=== PATIENT | male | born 1995 | race Caucasian/White ===

== ENCOUNTER 2016-05-23 17:01 | Emergency (ER) | payer MEDICAID ==
[2016-05-23 17:23] VITALS: BP 117/75
--- NOTE | 2016-05-23 18:14 | UC ---
Throat Pain/Nasal Boris HPI - HPI Summary HPI Summary: was was seen at the end of april and dx with pharyngitis, viral. today the cough and sinus pressure continue. no fever. does have a headache. - History of Current Complaint Chief Complaint: UCGeneralIllness Stated Complaint: RESPIRATORY COMPLAINT Time Seen by Provider: 05/23/16 18:02 Hx Obtained From: Patient Onset/Duration: Sudden Onset, Lasting Weeks Severity: Mild Pain Intensity: 4 Pain Scale Used: 0-10 Numeric Cough: Nonproductive Associated Signs & Symptoms: Positive: Dysphagia, Sinus Discomfort, Nasal Discharge - Epiglottits Risk Factors Epiglottis Risk Factors: Negative - Allergies/Home Medications Allergies/Adverse Reactions: Allergies Allergy/AdvReac Type Severity Reaction Status Date / Time Penicillins Allergy Intermediate Rash Verified 05/23/16 17:23 PMH/Surg Hx/FS Hx/Imm Hx Previously Healthy: Yes Endocrine History Of: Reports: Thyroid Disease - HYPO THYROID Denies: Diabetes Cardiovascular History Of: Denies: Cardiac Disorders, Hypertension Respiratory History Of: Denies: COPD, Asthma GI/ History Of: Denies: Ulcer - Surgical History Surgical History: Yes Surgery Procedure, Year, and Place: Sinus surgery 2013, polyps removed. Septum straightened - Family History Known Family History: Positive: None, Cardiac Disease, Hypertension - mom/dad, Diabetes - dad - Social History Alcohol Use: None Substance Use Type: None Smoking Status (MU): Never Smoked Tobacco - Immunization History Most Recent Influenza Vaccination: fall Most Recent Tetanus Shot: PT DOES NOT KNOW Vaccination Up to Date: Yes Review of Systems Constitutional: Negative Skin: Negative Eyes: Negative ENT: Sore Throat, Nasal Discharge Respiratory: Shortness Of Breath, Cough Cardiovascular: Negative Gastrointestinal: Negative Genitourinary: Negative Motor: Negative Neurovascular: Negative Musculoskeletal: Negative Neurological: Headache Psychological: Negative All Other Systems Reviewed And Are Negative: Yes Physical Exam Triage Information Reviewed: Yes Appearance: Well-Nourished, Ill-Appearing, Pain Distress Vital Signs: Initial Vital Signs Temp 98.0 F 05/23/16 17:18 Pulse 74 05/23/16 17:18 Resp 16 05/23/16 17:18 BP 117/75 05/23/16 17:18 Pulse Ox 100 05/23/16 17:18 Vital Signs Reviewed: Yes Eye Exam: Normal Eyes: Positive: Conjunctiva Inflamed ENT Exam: Normal ENT: Positive: Pharyngeal erythema, Nasal congestion, Nasal drainage, TMs normal Dental Exam: Normal Neck exam: Normal Neck: Positive: Supple, Nontender, No Lymphadenopathy Respiratory Exam: Normal Respiratory: Positive: Chest non-tender, Lungs clear, Normal breath sounds Cardiovascular Exam: Normal Cardiovascular: Positive: RRR, No Murmur, Pulses Normal Abdominal Exam: Normal Abdomen Description: Positive: Nontender, No Organomegaly, Soft Bowel Sounds: Positive: Present Musculoskeletal Exam: Normal Musculoskeletal: Positive: Strength Intact, ROM Intact, No Edema Neurological Exam: Normal Neurological: Positive: Alert, Muscle Tone Normal Psychological Exam: Normal Psychological: Positive: Age Appropriate Behavior Skin Exam: Normal Throat Pain/Nasal Course/Dx - Course Course Of Treatment: history obtained, exam performed, medications reviewed, medications prescribed. educated on symptom treatment OTC - Differential Dx/Diagnosis Differential Diagnosis/HQI/PQRI: Influenza, Laryngitis, Pharyngitis, Sinusitis, Tonsillitis, URI Provider Diagnoses: Sinus congestion. pharyngitis. headache Discharge - Discharge Plan Condition: Stable Disposition: HOME Prescriptions: Benzonatate CAP* [Tessalon CAP*] 100 mg PO TID PRN #30 cap PRN Reason: Cough predniSONE TAB* [Deltasone TAB*] 40 mg PO DAILY #10 tab Patient Education Materials: Pharyngitis (ED) Additional Instructions: Take the medication as prescribed. Increase your fluid intake. Get plenty of rest. Follow up with worsening symptoms.
== END 2016-05-23 18:30 | disposition home or self-care (01) ==
LOC: UCCORT 17:01
DX: R09.81 Nasal congestion (principal); R51 Headache; J02.9 Acute pharyngitis, unspecified; Z88.0 Allergy status to penicillin
CPT/HCPCS: 99212; G0463

== ENCOUNTER 2016-06-06 10:09 | Emergency (ER) | payer MEDICAID ==
[2016-06-06 10:24] VITALS: BP 142/83
--- NOTE | 2016-06-06 10:48 | UC ---
Throat Pain/Nasal Boris HPI - HPI Summary HPI Summary: complaint of congestion and cough that strarted several weeks ago headache and bilateral ear pain cough is sometimes productive pressure in his face and forehead mild sore throat denies fever and chills took some ibuprofen last night with relief. - History of Current Complaint Chief Complaint: UCGeneralIllness Stated Complaint: THROAT PAIN Time Seen by Provider: 06/06/16 10:38 Hx Obtained From: Patient - Allergies/Home Medications Allergies/Adverse Reactions: Allergies Allergy/AdvReac Type Severity Reaction Status Date / Time Penicillins Allergy Intermediate Rash Verified 05/23/16 17:23 PMH/Surg Hx/FS Hx/Imm Hx Previously Healthy: No - URI Endocrine History Of: Reports: Thyroid Disease - HYPO THYROID Denies: Diabetes Cardiovascular History Of: Denies: Cardiac Disorders, Hypertension Respiratory History Of: Denies: COPD, Asthma GI/ History Of: Denies: Ulcer - Surgical History Surgical History: Yes Surgery Procedure, Year, and Place: Sinus surgery 2013, polyps removed. Septum straightened - Family History Known Family History: Positive: None, Cardiac Disease, Hypertension - mom/dad, Diabetes - dad - Social History Occupation: Student Lives: With Family Alcohol Use: None Substance Use Type: None Smoking Status (MU): Never Smoked Tobacco - Immunization History Most Recent Influenza Vaccination: fall Most Recent Tetanus Shot: PT DOES NOT KNOW Vaccination Up to Date: Yes Review of Systems Constitutional: Negative Skin: Negative Eyes: Negative ENT: Nasal Discharge Respiratory: Cough Cardiovascular: Negative Gastrointestinal: Negative Genitourinary: Negative Motor: Negative Neurovascular: Negative Musculoskeletal: Negative Neurological: Negative Psychological: Negative All Other Systems Reviewed And Are Negative: Yes Physical Exam Triage Information Reviewed: Yes Appearance: No Pain Distress, Well-Nourished Vital Signs: Initial Vital Signs Temp 98.1 F 06/06/16 10:19 Pulse 85 06/06/16 10:19 Resp 18 06/06/16 10:19 BP 142/83 06/06/16 10:19 Pulse Ox 98 06/06/16 10:19 Vital Signs Reviewed: Yes Eyes: Positive: Conjunctiva Clear ENT: Positive: Pharyngeal erythema, Nasal congestion, Nasal drainage, Other: - maxillary and frontal sinus tenderness. Negative: Tonsillar swelling, Tonsillar exudate Neck: Positive: No Lymphadenopathy Respiratory: Positive: Chest non-tender, Lungs clear, Normal breath sounds Cardiovascular: Positive: RRR, No Murmur Abdomen Description: Positive: Nontender, Soft Bowel Sounds: Positive: Present Musculoskeletal: Positive: No Edema Neurological: Positive: Alert Psychological Exam: Normal Skin Exam: Normal Throat Pain/Nasal Course/Dx - Differential Dx/Diagnosis Differential Diagnosis/HQI/PQRI: Pharyngitis, Sinusitis, URI Provider Diagnoses: sinusitis Discharge - Discharge Plan Condition: Stable Disposition: HOME Prescriptions: DOXYcycline CAP(*) [DOXYcycline 100MG CAP(*)] 100 mg PO BID #20 cap Patient Education Materials: Sinusitis (ED) Referrals: Lalit Mattson MD [Primary Care Provider] - Additional Instructions: SINUSITIS What is Sinusitis? Sinusitis is inflammation or infection of the lining of the sinuses behind the bones in your cheeks or forehead. Sinusitis may occur following a common cold, flu, or other infection; allergies; a tooth infection that spreads to the sinuses; swimming in contaminated water; pressure changes in airplanes at high altitudes; violent sneezing or nose blowing or smoking or breathing other peoples smoke. Symptoms Might Include: Nasal Congestion Sneezing Watery eyes, eye irritation, or eye itching Headaches Pressure in the cheeks Wheezing Trouble smelling Sore throat and coughing may occur Treatment Recommendations: Take medicines as prescribed until completely gone. Drink plenty of fluids. Use saline nose spray to thin the mucous and help the sinuses drain. Use a vaporizer or humidifier. Apply warm compresses to the face or forehead several times a day for 10 to 20 minutes. Call Your Doctor or Return Here IF: Your pain increases during treatment. You develop a high temperature. You develop unusual swelling around the eyes. You have difficulty with your vision. You develop a severe headache, earache, or toothache. You develop increased fever or fever that does not respond to medication such as Tylenol?. You have difficulty breathing or catching your breath. You begin to have any other new symptoms that worry you.
== END 2016-06-06 11:00 | disposition home or self-care (01) ==
LOC: UCEAST 10:09
DX: J32.9 Chronic sinusitis, unspecified (principal); Z88.0 Allergy status to penicillin
CPT/HCPCS: 99212; G0463

== ENCOUNTER 2016-06-27 12:15 | Emergency (ER) | payer MEDICAID ==
--- NOTE | 2016-06-27 14:40 | UC ---
Abdominal Pain Male HPI - HPI Summary HPI Summary: Patient arrives to with CC of BRBPR and lower abdominal cramping since 330am. Denies eating anything abnormal or travel history. Denies known fever, vomiting or nausea. States at 330 this morning had 2-3 bouts of green diarrhea. An hour later the diarrhea had scant amounts of BRB. Now, patient notes to only blood. Denies pain in rectum or anus. Denies history of hemorrhoids. Patients PMHx includes OCD, ADD, and depression to which he takes Risperdol and Zoloft. Otherwise healthy. Today BP is elevated at 155/93. Last PCP visit was 1 month ago for medication refill. Denies drugs, smoking or alcohol usage. - History of Current Complaint Chief Complaint: UCAbdominalPain Stated Complaint: BLOOD IN STOOL,CRAMPS Hx Obtained From: Patient Onset/Duration: Sudden Onset Timing: Intermittent Episodes Lasting: - intermittent cramping which is worse during BM and improves after BM Severity Currently: Moderate Pain Intensity: 4 Pain Scale Used: 0-10 Numeric Location: Discrete At: RLQ, Discrete At: LLQ Radiates: No Character: Aching, Cramping Alleviating Factor(s): Nothing Associated Signs And Symptoms: Positive: Diarrhea, Other - hematochezia - Risk Factors Testicular Torsion: Negative Cardiac Risk Factors: Negative - Allergies/Home Medications Allergies/Adverse Reactions: Allergies Allergy/AdvReac Type Severity Reaction Status Date / Time Penicillins Allergy Intermediate Rash Verified 05/23/16 17:23 cats, dogs, horse, hayfever Allergy Unknown Uncoded 06/27/16 13:54 Reaction Details PMH/Surg Hx/FS Hx/Imm Hx Previously Healthy: Yes Endocrine History Of: Reports: Thyroid Disease - HYPO THYROID Denies: Diabetes Cardiovascular History Of: Denies: Cardiac Disorders, Hypertension Respiratory History Of: Denies: COPD, Asthma GI/ History Of: Denies: Ulcer - Surgical History Surgical History: Yes Surgery Procedure, Year, and Place: Sinus surgery 2013, polyps removed. Septum straightened - Family History Known Family History: Positive: None, Cardiac Disease, Hypertension - mom/dad, Diabetes - dad - Social History Occupation: Student Lives: With Family Alcohol Use: None Substance Use Type: None Smoking Status (MU): Never Smoked Tobacco Have You Smoked in the Last Year: No - Immunization History Most Recent Influenza Vaccination: 2014 fall Most Recent Tetanus Shot: PT DOES NOT KNOW Vaccination Up to Date: Yes Review of Systems Constitutional: Negative ENT: Negative Respiratory: Negative Cardiovascular: Negative Gastrointestinal: Abdominal Pain, Diarrhea, Other - hematochezia Genitourinary: Negative Motor: Negative Neurovascular: Negative Musculoskeletal: Negative Neurological: Negative All Other Systems Reviewed And Are Negative: Yes Physical Exam Triage Information Reviewed: Yes Appearance: Well-Appearing, No Pain Distress, Well-Nourished Vital Signs: Initial Vital Signs Temp 98.6 F 06/27/16 13:44 Pulse 75 06/27/16 13:44 Resp 18 06/27/16 13:44 BP 155/93 06/27/16 13:44 Pulse Ox 100 06/27/16 13:44 Vital Signs Reviewed: Yes Eye Exam: Normal Eyes: Positive: Conjunctiva Clear ENT Exam: Normal ENT: Positive: Hearing grossly normal Neck exam: Normal Neck: Positive: Supple, Nontender, No Lymphadenopathy Respiratory Exam: Normal Respiratory: Positive: Chest non-tender, Lungs clear Cardiovascular Exam: Normal Abdomen Description: Positive: Soft, Other: - tender in RLQ and LLQ Bowel Sounds: Positive: Hyperactive Musculoskeletal Exam: Normal Neurological Exam: Normal Neurological: Positive: Alert, Muscle Tone Normal Psychological Exam: Normal Psychological: Positive: Normal Response To Family, Age Appropriate Behavior Skin Exam: Normal Abd Pain Male Course/Dx - Course Course Of Treatment: Patient with BRBPR with no known internal or external hemmorhoids. Denies fever, nausea, vomiting, travel, sick contacts or abnormal food intake. Patient sent to [place] [facility] for further evaluation. Spoke with provider ARSH Casey for transfer. Patient traveling by private car. BP elevated today at 155/93. Patient obese. Otherwise healthy. - Differential Dx/Clinical Impression Differential Diagnosis/HQI/PQRI: Diverticulitis, Other - hemorroids, inflammatory bowel, infectious diarrhea Provider Diagnoses: BRBPR - Physician Notification/Consults Instructed by Provider To: Transfer - Spoke with ARSH Casey at [place] [facility] Discharge - Discharge Plan Condition: Stable Disposition: [facility]ARE [facility]AC Referrals: Twila RICHARDS,Lalit [Primary Care Provider] -
[2016-06-27 14:44] VITALS: BP 154/103
== END 2016-06-27 14:44 | disposition left against medical advice (07) ==
LOC: UCCORT 12:15
DX: K62.5 Hemorrhage of anus and rectum (principal); R10.31 Right lower quadrant pain; R10.32 Left lower quadrant pain; Z88.0 Allergy status to penicillin
CPT/HCPCS: 99213; G0463

== ENCOUNTER 2016-08-30 16:01 | Emergency (ER) | payer MEDICAID ==
[2016-08-30 16:59] VITALS: BP 135/83
--- NOTE | 2016-08-30 17:53 | UC ---
Skin Complaint HPI - HPI Summary HPI Summary: The patient comes in today for: 1. Tick bite: Onset: Tick found today, and was about 5-10 mm in size. The patient did not bring the tick in for inspection. Palliative/provocative: Soreness with touch. Quality: Sore Region: Posterior right shoulder. Severity: 0.5/10 Time: Constant. Associated symptoms: No fever, or rash. But he states that he has a headache over the last few days. * - History of Current Complaint Chief Complaint: UCSkin Time Seen by Provider: 08/30/16 17:48 Stated Complaint: TICK Hx Obtained From: Patient - Allergy/Home Medications Allergies/Adverse Reactions: Allergies Allergy/AdvReac Type Severity Reaction Status Date / Time Penicillins Allergy Intermediate Rash Verified 08/30/16 16:59 cats, dogs, horse, hayfever Allergy Unknown Uncoded 08/30/16 16:59 Reaction Details Review of Systems Constitutional: Negative Skin: Negative Eyes: Negative ENT: Negative Respiratory: Negative Cardiovascular: Negative All Other Systems Reviewed And Are Negative: Yes PMH/Surg Hx/FS Hx/Imm Hx Previously Healthy: No - ADHD, unknown mental health disorder. Endocrine History Of: Reports: Thyroid Disease - HYPO THYROID Denies: Diabetes, Hyperthyroidism, Hypothyroidism, Dyslipidemia Cardiovascular History Of: Denies: Cardiac Disorders, Hypertension, Pacemaker/ICD, Myocardial Infarction , Congestive Heart Failure, Atrial Fibrillation, Deep Vein Thrombosis, Bleeding Disorders Respiratory History Of: Denies: COPD, Asthma, Bronchitis, Pneumonia, Pulmonary Embolism GI/ History Of: Denies: Gastroesophageal Reflux, Ulcer, Gastrointestinal Bleed, Gall Bladder Disease, Kidney Stones, Diverticulitis, Renal Disease, Urosepsis Neurological History Of: Denies: TIA, CVA, Dementia, Seizures, Migraine Psychological History Of: Reports: Anxiety, Depression Denies: Bipolar Disorder, Schizophrenia, Post Traumatic Stress Disorder Cancer History Of: Denies: Lung Cancer, Colorectal Cancer, Breast Cancer, Prostate Cancer, Cervical Cancer Other History Of: Negative For: HIV, Hepatitis B, Hepatitis C, Anticoagulant Therapy - Surgical History Surgical History: Yes Surgery Procedure, Year, and Place: Sinus surgery 2013, polyps removed. Septum straightened - Family History Known Family History: Positive: Cardiac Disease, Hypertension - mom/dad, Diabetes - dad - Social History Occupation: Unemployed Alcohol Use: None Substance Use Type: None Smoking Status (MU): Never Smoked Tobacco Have You Smoked in the Last Year: No - Immunization History Most Recent Influenza Vaccination: fall Most Recent Tetanus Shot: PT DOES NOT KNOW Vaccination Up to Date: Yes Physical Exam Triage Information Reviewed: Yes Appearance: Well-Appearing, No Pain Distress, Well-Nourished Vital Signs: Initial Vital Signs Temp 97 F 08/30/16 16:56 Pulse 72 08/30/16 16:56 Resp 18 08/30/16 16:56 BP 135/83 08/30/16 16:56 Pulse Ox 100 08/30/16 16:56 Vital Signs Reviewed: Yes Eyes: Positive: Conjunctiva Clear. Negative: Discharge ENT: Positive: Hearing grossly normal. Negative: Pharyngeal erythema, Nasal congestion, Nasal drainage, TM bulging, TM dull, TM red, Tonsillar swelling, Tonsillar exudate Dental: Negative: Gross Decay/Caries @, Dental Fracture @ Neck: Positive: Supple, Nontender, No Lymphadenopathy. Negative: Nuchal Rigidity Respiratory: Positive: Lungs clear, No respiratory distress, No accessory muscle use. Negative: Crackles, Wheezing Cardiovascular: Positive: RRR, No Murmur Abdomen Description: Positive: Nontender, No Organomegaly, Soft. Negative: Distended, Guarding Musculoskeletal: Positive: Strength Intact, ROM Intact, No Edema Neurological: Positive: Alert, Muscle Tone Normal Psychological: Positive: Age Appropriate Behavior, Consolable Skin: Positive: rashes - He had 2-3 mm erythema and dark scab on the posterior right shoulder. Minimal tenderness. No discharge. Course/Dx - Course Course Of Treatment: Patient given 200 mg doxycycline. - Differential Diagnoses - Skin Complaint Differential Diagnoses: Cellulitis, Impetigo - Diagnoses Provider Diagnoses: Tick bite, right posterior shoulder. Discharge - Discharge Plan Condition: Stable Disposition: HOME Patient Education Materials: Tick Bite (ED) Referrals: Tavon Rendon MD [Primary Care Provider] - If Needed (Please watch the area daily for increasing redness, tenderness, discharge or swelling. If you dont' continue to see healing, please be seen again.)
[2016-08-30] MEDS ORDERED: DOXYcycline CAP(*) 100 MG PO ONE (17:57)
== END 2016-08-30 18:07 | disposition home or self-care (01) ==
LOC: UCCORT 16:01
DX: S40.261A Insect bite (nonvenomous) of right shoulder, initial encounter (principal); W57.XXXA Bitten or stung by nonvenomous insect and other nonvenomous arthropods, initial encounter; Y93.9 Activity, unspecified; Y92.9 Unspecified place or not applicable; R51 Headache; Z88.0 Allergy status to penicillin; E03.9 Hypothyroidism, unspecified; F90.9 Attention-deficit hyperactivity disorder, unspecified type; F41.8 Other specified anxiety disorders
CPT/HCPCS: 99212; A9270-GY; G0463

== ENCOUNTER 2016-09-07 16:36 | Emergency (ER) | payer SELFPAY ==
[2016-09-07 17:09] VITALS: BP 135/82
--- NOTE | 2016-09-07 17:22 | RAD ---
HISTORY: Trauma, lightheadedness COMPARISONS: None TECHNIQUE: Multiple contiguous axial CT scans were obtained of the head without intravenous contrast. FINDINGS: HEMORRHAGE/INFARCT: There is no hemorrhage or acute infarct. MASSES/SHIFT: There is no mass or shift. EXTRA-AXIAL SPACES: There are no extra-axial fluid collections. SULCI AND VENTRICLES: The sulci and ventricles are normal in size and position for the patient's stated age. CEREBRUM: There are no focal parenchymal abnormalities. BRAINSTEM: There are no focal parenchymal abnormalities. CEREBELLUM: There are no focal parenchymal abnormalities. VESSELS: The vessels are grossly normal. PARANASAL SINUSES: The paranasal sinuses are clear. ORBITS: The orbits are unremarkable. BONES AND SOFT TISSUE: No bone or soft tissue abnormalities are noted. OTHER: None IMPRESSION: NO ACUTE INTRACRANIAL PATHOLOGY.
--- NOTE | 2016-09-07 17:23 | RAD ---
HISTORY: Trauma, lightheadedness COMPARISONS: None TECHNIQUE: Multiple contiguous axial CT scans were obtained of the cervical spine without intravenous contrast, with coronal and sagittal multiplanar reformations. FINDINGS: BRAIN: The visualized brain is unremarkable CENTRAL CANAL: Evaluation of the central canal is limited on CT technique, however there is no obvious canalicular mass or epidural hemorrhage. ALIGNMENT: There is straightening of the normal cervical lordosis. VERTEBRAL BODIES: The odontoid process is intact. The atlantoaxial intervals are symmetric. The vertebral bodies are normal in attenuation, without fracture. JOINTS: There is no subluxation or dislocation MUSCULATURE: Normal INTERVERTEBRAL DISCS: The intervertebral disc spaces are relatively preserved in height. AXIAL IMAGES: On axial images, there is no osseous neural foraminal narrowing or central canal stenosis. SOFT TISSUES: The visualized soft tissues of the neck are unremarkable. The prevertebral fat stripe is preserved. OTHER: None. IMPRESSION: NO ACUTE OSSEOUS INJURY TO THE CERVICAL SPINE
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
== END 2016-09-07 18:18 | disposition home or self-care (01) ==
LOC: ED 16:36
DX: S09.90XA Unspecified injury of head, initial encounter (principal); S13.4XXA Sprain of ligaments of cervical spine, initial encounter; Y92.9 Unspecified place or not applicable; V79.9XXA Bus occupant (driver) (passenger) injured in unspecified traffic accident, initial encounter
CPT/HCPCS: 70450; 72125; 99282

== ENCOUNTER 2016-09-16 08:36 | Emergency (ER) | payer MEDICAID ==
[2016-09-16 08:45] VITALS: BP 140/84
--- NOTE | 2016-09-16 08:57 | UC ---
Throat Pain/Nasal Boris HPI - HPI Summary HPI Summary: complaint of nasal congestion and cough productive cough for the last week pressure in his face frequent headaches sore throat from coughing denies fever and chills not taking any medications for symptoms - History of Current Complaint Chief Complaint: UCRespiratory Stated Complaint: UPPER RESPIRATORY Time Seen by Provider: 09/16/16 08:48 Hx Obtained From: Patient - Allergies/Home Medications Allergies/Adverse Reactions: Allergies Allergy/AdvReac Type Severity Reaction Status Date / Time Penicillins Allergy Intermediate Rash Verified 09/16/16 08:45 cats, dogs, horse, hayfever Allergy Unknown Uncoded 09/16/16 08:45 Reaction Details PMH/Surg Hx/FS Hx/Imm Hx Previously Healthy: Yes Endocrine History Of: Reports: Thyroid Disease - HYPO THYROID Denies: Diabetes, Hyperthyroidism, Hypothyroidism, Dyslipidemia Cardiovascular History Of: Denies: Cardiac Disorders, Hypertension, Pacemaker/ICD, Myocardial Infarction , Congestive Heart Failure, Atrial Fibrillation, Deep Vein Thrombosis, Bleeding Disorders Respiratory History Of: Denies: COPD, Asthma, Bronchitis, Pneumonia, Pulmonary Embolism GI/ History Of: Denies: Gastroesophageal Reflux, Ulcer, Gastrointestinal Bleed, Gall Bladder Disease, Kidney Stones, Diverticulitis, Renal Disease, Urosepsis Neurological History Of: Denies: TIA, CVA, Dementia, Seizures, Migraine Psychological History Of: Reports: Anxiety, Depression Denies: Bipolar Disorder, Schizophrenia, Post Traumatic Stress Disorder Cancer History Of: Denies: Lung Cancer, Colorectal Cancer, Breast Cancer, Prostate Cancer, Cervical Cancer Other History Of: Negative For: HIV, Hepatitis B, Hepatitis C, Anticoagulant Therapy - Surgical History Surgical History: Yes Surgery Procedure, Year, and Place: Sinus surgery 2013, polyps removed. Septum straightened - Family History Known Family History: Positive: Cardiac Disease, Hypertension - mom/dad, Diabetes - dad - Social History Occupation: Employed Part-time Lives: With Family Alcohol Use: None Substance Use Type: None Smoking Status (MU): Never Smoked Tobacco Have You Smoked in the Last Year: No - Immunization History Most Recent Influenza Vaccination: fall Most Recent Tetanus Shot: PT DOES NOT KNOW Vaccination Up to Date: Yes Review of Systems Constitutional: Negative Skin: Negative Eyes: Negative ENT: Sore Throat, Ear Ache, Nasal Discharge Respiratory: Cough Cardiovascular: Negative Gastrointestinal: Negative Genitourinary: Negative Motor: Negative Neurovascular: Negative Musculoskeletal: Negative Neurological: Headache Psychological: Negative All Other Systems Reviewed And Are Negative: Yes Physical Exam Triage Information Reviewed: Yes Appearance: No Pain Distress, Well-Nourished Vital Signs: Initial Vital Signs Temp 98 F 09/16/16 08:41 Pulse 60 09/16/16 08:41 Resp 14 09/16/16 08:41 BP 140/84 09/16/16 08:41 Pulse Ox 99 09/16/16 08:41 Vital Signs Reviewed: Yes Eyes: Positive: Conjunctiva Clear ENT: Positive: Pharyngeal erythema, Nasal congestion, Nasal drainage, TM bulging , Other: - frontal and maxillary sinus tenderness. Negative: TM red Neck: Positive: No Lymphadenopathy Respiratory: Positive: Lungs clear, Normal breath sounds, No respiratory distress, No accessory muscle use Cardiovascular: Positive: RRR, No Murmur, Pulses Normal Abdomen Description: Positive: Nontender, Soft Bowel Sounds: Positive: Present Musculoskeletal: Positive: No Edema Neurological Exam: Normal Psychological Exam: Normal Skin Exam: Normal Throat Pain/Nasal Course/Dx - Differential Dx/Diagnosis Differential Diagnosis/HQI/PQRI: Sinusitis, URI Provider Diagnoses: sinusitis. elevated blood pressure Discharge - Discharge Plan Condition: Stable Disposition: HOME Prescriptions: Sulfamethox/Trimethoprim DS* [Bactrim DS 800/160 TAB*] 1 tab PO BID #20 tab Patient Education Materials: Sinusitis (ED) Referrals: Tavon Rendon MD [Primary Care Provider] - Additional Instructions: SINUSITIS What is Sinusitis? Sinusitis is inflammation or infection of the lining of the sinuses behind the bones in your cheeks or forehead. Sinusitis may occur following a common cold, flu, or other infection; allergies; a tooth infection that spreads to the sinuses; swimming in contaminated water; pressure changes in airplanes at high altitudes; violent sneezing or nose blowing or smoking or breathing other peoples smoke. Symptoms Might Include: Nasal Congestion Sneezing Watery eyes, eye irritation, or eye itching Headaches Pressure in the cheeks Wheezing Trouble smelling Sore throat and coughing may occur Treatment Recommendations: Take medicines as prescribed until completely gone. Drink plenty of fluids. Use saline nose spray to thin the mucous and help the sinuses drain. Use a vaporizer or humidifier. Apply warm compresses to the face or forehead several times a day for 10 to 20 minutes. Call Your Doctor or Return Here IF: Your pain increases during treatment. You develop a high temperature. You develop unusual swelling around the eyes. You have difficulty with your vision. You develop a severe headache, earache, or toothache. You develop increased fever or fever that does not respond to medication such as Tylenol?. You have difficulty breathing or catching your breath. You begin to have any other new symptoms that worry you. Your blood pressure is elevated. Please contact your primary care provider within 1 day -4 weeks for further evaluation.
== END 2016-09-16 09:04 | disposition home or self-care (01) ==
LOC: UCCORT 08:36
DX: J32.9 Chronic sinusitis, unspecified (principal); R03.0 Elevated blood-pressure reading, without diagnosis of hypertension; E03.9 Hypothyroidism, unspecified; F41.8 Other specified anxiety disorders; Z88.0 Allergy status to penicillin
CPT/HCPCS: 99212; G0463

== ENCOUNTER 2016-11-28 15:09 | Emergency (ER) | payer MEDICAID ==
--- NOTE | 2016-11-28 16:13 | UC ---
Shoulder Pain HPI - HPI Summary HPI Summary: 21 YEAR OLD MALE PRESENTS WITH COMPLAINS OF LEFT UPPER BACK PAIN. - History of Current Complaint Stated Complaint: SHOULDER BLADE PAIN Time Seen by Provider: 11/28/16 16:12 - Allergies/Home Medications Allergies/Adverse Reactions: Allergies Allergy/AdvReac Type Severity Reaction Status Date / Time Penicillins Allergy Intermediate Rash Verified 11/28/16 16:36 cats, dogs, horse, hayfever Allergy Unknown Uncoded 11/28/16 16:36 Reaction Details Home Medications: Home Medications Cetirizine* [ZyrTEC 10 MG TAB*] 10 mg PO DAILY 11/28/16 [History Confirmed 11/28] PMH/Surg Hx/FS Hx/Imm Hx Other History Of: Negative For: HIV, Hepatitis B, Hepatitis C, Anticoagulant Therapy - Surgical History Surgical History: Yes Surgery Procedure, Year, and Place: Sinus surgery 2013, polyps removed. Septum straightened - Family History Known Family History: Positive: Cardiac Disease, Hypertension - mom/dad, Diabetes - dad - Social History Alcohol Use: None Substance Use Type: None Smoking Status (MU): Never Smoked Tobacco Have You Smoked in the Last Year: No - Immunization History Most Recent Influenza Vaccination: fall Most Recent Tetanus Shot: PT DOES NOT KNOW Vaccination Up to Date: Yes Review of Systems Constitutional: Negative Skin: Negative Eyes: Negative ENT: Negative Respiratory: Negative Cardiovascular: Negative Gastrointestinal: Negative Genitourinary: Negative Motor: Negative Neurovascular: Negative Musculoskeletal: Myalgia, Other: - LEFT UPPER BACK PAIN Neurological: Negative Psychological: Negative All Other Systems Reviewed And Are Negative: Yes Physical Exam Triage Information Reviewed: Yes Eye Exam: Normal ENT Exam: Normal Dental Exam: Normal Neck exam: Normal Neck: Positive: 1 Respiratory Exam: Normal Cardiovascular Exam: Normal Abdominal Exam: Normal Musculoskeletal: Positive: Other: - LEFT UPPER BACK PAIN Neurological Exam: Normal Psychological Exam: Normal Skin Exam: Normal Shoulder Course/Dx - Differential Dx/Diagnosis Provider Diagnoses: LEFT SCAPULA DYSKINESIA Discharge - Discharge Plan Condition: Stable Disposition: HOME Prescriptions: Meloxicam [Mobic] 7.5 mg PO BID #30 tab Methocarbamol TAB* [Robaxin 500 MG TAB*] 500 mg PO TID PRN #30 tab PRN Reason: Spasms - Back Patient Education Materials: Shoulder Sprain (ED), Muscle Spasm (ED) Referrals: No Primary Care Phys,NOPCP [Primary Care Provider] -
[2016-11-28 16:43] VITALS: BP 124/92
== END 2016-11-28 16:43 | disposition home or self-care (01) ==
LOC: UCCORT 15:09
DX: G24.9 Dystonia, unspecified (principal); Z88.0 Allergy status to penicillin
CPT/HCPCS: 99212; G0463

== ENCOUNTER 2016-12-18 15:01 | Emergency (ER) | payer MEDICAID ==
--- NOTE | 2016-12-18 15:37 | UC ---
Lower Extremity/Ankle HPI - HPI Summary HPI Summary: 21 y/o male PMHX ADHD, depression presents to the urgent car c/o left lower leg pain for the past 3 days after playing soft ball. Pt states pain increased last night when he played again. Pain is 8/10 upon walking and 3/10 at rest. Pt has taken Meloxicam PO w/o any relief of symptoms. Pt denies fever, SOB, chest pain , N/V/D, CORTES. - History of Current Complaint Stated Complaint: LEFT LEG INJURY Time Seen by Provider: 12/18/16 15:29 Hx Obtained From: Patient Onset/Duration: Gradual Onset, Lasting Days, Still Present Severity Initially: Mild Severity Currently: Moderate Pain Intensity: 8 Pain Scale Used: 0-10 Numeric Aggravating Factor(s): Ambulation Alleviating Factor(s): Rest Able to Bear Weight: Yes - Risk Factors Gout Risk Factors: Negative DVT Risk Factors: Negative Septic Arthritis Risk Factor: Negative - Allergies/Home Medications Allergies/Adverse Reactions: Allergies Allergy/AdvReac Type Severity Reaction Status Date / Time Penicillins Allergy Intermediate Rash Verified 12/18/16 15:30 cats, dogs, horse, hayfever Allergy Unknown Uncoded 12/18/16 15:30 Reaction Details PMH/Surg Hx/FS Hx/Imm Hx Previously Healthy: Yes Psychological History: Anxiety, Depression Other Psychological History: ADHD Other History Of: Negative For: HIV, Hepatitis B, Hepatitis C, Anticoagulant Therapy - Surgical History Surgical History: Yes Surgery Procedure, Year, and Place: Sinus surgery 2013, polyps removed. Septum straightened - Family History Known Family History: Positive: Cardiac Disease, Hypertension - mom/dad, Diabetes - dad - Social History Occupation: Student Lives: With Family Alcohol Use: None Substance Use Type: None Smoking Status (MU): Never Smoked Tobacco Have You Smoked in the Last Year: No - Immunization History Most Recent Influenza Vaccination: fall Most Recent Tetanus Shot: PT DOES NOT KNOW Vaccination Up to Date: Yes Review of Systems Constitutional: Negative Skin: Negative Eyes: Negative ENT: Negative Respiratory: Negative Cardiovascular: Negative Gastrointestinal: Negative Genitourinary: Negative Motor: Negative Neurovascular: Negative Musculoskeletal: Other: - LF simon pain Neurological: Negative Psychological: Negative All Other Systems Reviewed And Are Negative: Yes Physical Exam Triage Information Reviewed: Yes Appearance: Well-Appearing, No Pain Distress, Well-Nourished, Obese Eye Exam: Normal Eyes: Positive: Conjunctiva Clear ENT Exam: Normal ENT: Positive: Normal ENT inspection, Hearing grossly normal, Pharynx normal Dental Exam: Normal Neck exam: Normal Neck: Positive: Supple, Nontender Respiratory Exam: Normal Respiratory: Positive: Chest non-tender, Lungs clear, Normal breath sounds Cardiovascular Exam: Normal Cardiovascular: Positive: RRR, No Murmur, Pulses Normal Abdominal Exam: Normal Abdomen Description: Positive: Nontender, No Organomegaly, Soft. Negative: CVA Tenderness (R), CVA Tenderness (L) Bowel Sounds: Positive: Present Musculoskeletal: Positive: Other: - 21 y/o male PMHX ADHD, depression presents to the urgent car c/o left lower leg pain for the past 3 days after playing soft ball. Pt states pain increased last night when he played again. Pain is 8/ 10 upon walking and 3/10 at rest. Pt has taken Meloxicam PO w/o any relief of symptoms. Pt denies fever, SOB, chest pain, N/V/D, CORTES. Neurological Exam: Normal Psychological Exam: Normal Skin Exam: Normal Lower Extremity Course/Dx - Course Course Of Treatment: 21 y/o male PMHX ADHD, depression presents to the urgent car c/o left lower leg pain for the past 3 days after playing soft ball. Pt states pain increased last night when he played again. Pain is 8/10 upon walking and 3/10 at rest. Pt has taken Meloxicam PO w/o any relief of symptoms. Pt denies fever, SOB, chest pain, N/V/D, CORTES. HX obtained. 21 y/o male PMHX ADHD, depression presents to the urgent car c/o left lower leg pain for the past 3 days after playing soft ball. Pt states pain increased last night when he played again. Pain is 8/10 upon walking and 3/10 at rest. Pt has taken Meloxicam PO w/o any relief of symptoms. Pt denies fever, SOB, chest pain , N/V/D, CORTES. R/o DVT, tear, grastonemicus sprain or tear? Pt's symptoms discussed with DR Beavers and he suggested Pt should go to the ER to r/o DVT or tear since we don't have ultrasound at this moment. Pt's father explained the risks of a clot or a tear. Father agreed and stated he will take his son to the [place] ER. I spoke to SORTING AND FOLDING SUPERVISOR Carmela Reid at [facility] [place]. She agreed to take Pt. Pt left the clinic ambulating and hemodinamically stable. - Differential Dx/Diagnosis Differential Diagnosis/HQI/PQRI: Compartment Syndrome, Contusion, Fracture ( Closed), Sprain, Strain, Tendonitis, Other - achilles tendon rupture, DVT, grastronemicus tear or strain Provider Diagnoses: 1- Acute Left calf pain - Physician Notifications Discussed Patient Care With: Yury Beavers - Dr Beavers agreed w/ Pt care and disposition Discharge - Discharge Plan Condition: Stable Disposition: TRANS HIGHER LVL OF CARE FAC Patient Education Materials: Deep Venous Thrombosis (ED) Referrals: Uriel SHELTON,Hector Pierce [Primary Care Provider] - Additional Instructions: I highly recommend you to go to the [place] ER . You are presenting with severe calf pain must likely gratronemicus muscle tear, strain, but we need to r /o DVT.
[2016-12-18 15:59] VITALS: BP 128/74
== END 2016-12-18 16:35 | disposition short-term general hospital (02) ==
LOC: UCCORT 15:01
DX: M79.662 Pain in left lower leg (principal); E66.9 Obesity, unspecified; F41.9 Anxiety disorder, unspecified; F32.9 Major depressive disorder, single episode, unspecified; F90.9 Attention-deficit hyperactivity disorder, unspecified type; Z88.0 Allergy status to penicillin
CPT/HCPCS: 99211; G0463

== ENCOUNTER 2017-01-02 16:51 | Emergency (ER) | payer MEDICAID ==
[2017-01-02 17:02] VITALS: BP 128/73
--- NOTE | 2017-01-02 17:28 | UC ---
Eye Complaint HPI - HPI Summary HPI Summary: 21 YO MALE WITH ITCHY RED EYES X 4 DAYS NO URI SYMPTOMS NO PAIN - History of Current Complaint Chief Complaint: UCEye Stated Complaint: ITCHY/BURNING EYES Time Seen by Provider: 01/02/17 17:21 Hx Obtained From: Patient Onset/Duration: Gradual Onset, Lasting Days Timing: Constant Severity Initially: Mild Severity Currently: Mild Pain Intensity: 2 Pain Scale Used: 0-10 Numeric Location of Injury: Conjunctiva Associated Signs And Symptoms: Positive: Drainage (Purulent) - Risk Factors Penetrating Injury Risk Factor: Negative Globe Rupture Risk Factors: Negative Acute Glaucoma Risk Factors: Negative Optic Artery Occlusion Risk Factors: Negative - Allergies/Home Medications Allergies/Adverse Reactions: Allergies Allergy/AdvReac Type Severity Reaction Status Date / Time Penicillins Allergy Intermediate Rash Verified 01/02/17 17:02 cats, dogs, horse, hayfever Allergy Unknown Uncoded 01/02/17 17:02 Reaction Details PMH/Surg Hx/FS Hx/Imm Hx Previously Healthy: Yes Psychological History: Other - UNKNOWN Other Psychological History: UNKNOWN Other History Of: Negative For: HIV, Hepatitis B, Hepatitis C, Anticoagulant Therapy - Surgical History Surgical History: Yes Surgery Procedure, Year, and Place: Sinus surgery 2013, polyps removed. Septum straightened - Family History Known Family History: Positive: Cardiac Disease, Hypertension - mom/dad, Diabetes - dad - Social History Alcohol Use: None Substance Use Type: None Smoking Status (MU): Never Smoked Tobacco Have You Smoked in the Last Year: No - Immunization History Most Recent Influenza Vaccination: fall Most Recent Tetanus Shot: PT DOES NOT KNOW Vaccination Up to Date: Yes Review of Systems Constitutional: Negative Skin: Negative Eyes: Drainage, Eye Redness ENT: Negative Respiratory: Negative Cardiovascular: Negative Gastrointestinal: Negative Genitourinary: Negative Motor: Negative Neurovascular: Negative Musculoskeletal: Negative Neurological: Negative Psychological: Negative All Other Systems Reviewed And Are Negative: Yes Physical Exam Triage Information Reviewed: Yes Appearance: No Pain Distress, Well-Nourished, Ill-Appearing Vital Signs: Initial Vital Signs Temp 97.6 F 01/02/17 16:56 Pulse 65 01/02/17 16:56 Resp 16 01/02/17 16:56 BP 128/73 01/02/17 16:56 Pulse Ox 100 01/02/17 16:56 Eyes: Positive: Conjunctiva Inflamed, Other: - EOMI/PERRL ENT: Positive: Hearing grossly normal, TMs normal. Negative: Pharyngeal erythema, Nasal congestion, Nasal drainage, Trismus, Muffled/hoarse voice Neck: Positive: Supple, Nontender, No Lymphadenopathy Respiratory: Positive: Lungs clear, Normal breath sounds, No respiratory distress, No accessory muscle use Cardiovascular: Positive: RRR, No Murmur Musculoskeletal: Positive: ROM Intact, No Edema Neurological: Positive: Alert Psychological Exam: Normal Skin Exam: Normal Eye Complaint Course/Dx - Differential Dx/Diagnosis Provider Diagnoses: CONJUNCTIVITIS Discharge - Discharge Plan Condition: Stable Disposition: HOME Prescriptions: Polymyx/Trimethoprim OPTH* [Polytrim OPHTH*] 1 - 2 drop BOTH EYES QID #1 btl Patient Education Materials: Conjunctivitis (ED) Referrals: Uriel SHELTON,Hector Pierce [Primary Care Provider] - Additional Instructions: recheck in 4 days if not better I SUGGEST YOUR ALSO USE ZADITOR EYE DROPS (OTC)
== END 2017-01-02 17:35 | disposition home or self-care (01) ==
LOC: UCCORT 16:51
DX: H10.9 Unspecified conjunctivitis (principal)
CPT/HCPCS: 99212; G0463

== ENCOUNTER 2017-01-24 16:29 | Emergency (ER) | payer MEDICAID ==
[2017-01-24 19:02] VITALS: BP 130/79
--- NOTE | 2017-01-24 19:52 | UC ---
Abdominal Pain Male HPI - HPI Summary HPI Summary: 21 y/o male with abdominal pain since Saturday. Patient state pain in increased with urination, cramping pain that occurs with urination and at rest, doubling patient over at times. No prior episodes, no abdominal surgeries. - History of Current Complaint Chief Complaint: UCGU Stated Complaint: URINARY Time Seen by Provider: 01/24/17 19:29 Hx Obtained From: Patient, Family/Separator Tender - father Onset/Duration: Sudden Onset, Lasting Days Severity Initially: Moderate Severity Currently: Moderate Location: Discrete At: RLQ Radiates: No Character: Cramping, Sharp Alleviating Factor(s): Nothing Associated Signs And Symptoms: Positive: Fever - unsure, Urinary Symptoms - pain with urination - Allergies/Home Medications Allergies/Adverse Reactions: Allergies Allergy/AdvReac Type Severity Reaction Status Date / Time Penicillins Allergy Intermediate Rash Verified 01/24/17 18:57 cats, dogs, horse, hayfever Allergy Unknown Uncoded 01/24/17 18:57 Reaction Details PMH/Surg Hx/FS Hx/Imm Hx Previously Healthy: Yes - MR Other History Of: Negative For: HIV, Hepatitis B, Hepatitis C, Anticoagulant Therapy - Surgical History Surgical History: Yes Surgery Procedure, Year, and Place: Sinus surgery 2013, polyps removed. Septum straightened - Family History Known Family History: Positive: Cardiac Disease, Hypertension - mom/dad, Diabetes - dad - Social History Alcohol Use: None Substance Use Type: None Smoking Status (MU): Never Smoked Tobacco Have You Smoked in the Last Year: No - Immunization History Most Recent Influenza Vaccination: fall Most Recent Tetanus Shot: PT DOES NOT KNOW Vaccination Up to Date: Yes Review of Systems Gastrointestinal: Abdominal Pain Genitourinary: Dysuria, Frequency, Urgency Is Patient Immunocompromised?: No All Other Systems Reviewed And Are Negative: Yes Physical Exam Triage Information Reviewed: Yes Appearance: Well-Appearing, No Pain Distress, Well-Nourished Vital Signs: Initial Vital Signs Temp 97.4 F 01/24/17 18:59 Pulse 78 01/24/17 18:59 Resp 16 01/24/17 18:59 BP 130/79 01/24/17 18:59 Pulse Ox 99 01/24/17 18:59 Vital Signs Reviewed: Yes ENT: Positive: Pharynx normal, TM dull Neck: Positive: Supple, Nontender, No Lymphadenopathy Abdomen Description: Positive: No Organomegaly, Other: - + mcburney, + psoas, pain located specifically at RLQ, no CVA tenderness b/l NABS x 4. Musculoskeletal Exam: Normal Neurological Exam: Normal Psychological Exam: Normal Skin Exam: Normal Abd Pain Male Course/Dx - Course Course Of Treatment: possible appendicitis, patients father informed, advised to go to [facility], which [facility] agreed to. [facility] notified, Dr. Reid. - Differential Dx/Clinical Impression Differential Diagnosis/HQI/PQRI: Appendicitis, Bowel Obstruction, Constipation, Diverticulitis Provider Diagnoses: acute abdominal pain Discharge - Discharge Plan Condition: Fair Disposition: OTHER Discharge Disposition Comment: to ER Patient Education Materials: Acute Abdominal Pain (ED) Referrals: Uriel SHELTON,Hector Pierce [Primary Care Provider] - Additional Instructions: - Patient advised to go to ER due to possible appendicitis signs/ symptoms. -
== END 2017-01-24 19:50 ==
LOC: UCCORT 16:29
DX: R10.31 Right lower quadrant pain (principal); J30.81 Allergic rhinitis due to animal (cat) (dog) hair and dander; Z88.0 Allergy status to penicillin
CPT/HCPCS: 81003; 99212; G0463

== ENCOUNTER 2017-02-26 13:28 | Emergency (ER) | payer MEDICAID ==
[2017-02-26 13:35] VITALS: BP 125/76
--- NOTE | 2017-02-26 14:30 | RAD ---
HISTORY: Fall, left shoulder pain COMPARISONS: None VIEWS: 4, Frontal internal rotation, external rotation, outlet, and axillary views of the left shoulder FINDINGS: BONE DENSITY: Normal. BONES: There is no displaced fracture. JOINTS: There is no arthropathy. ALIGNMENT: There is no dislocation. SOFT TISSUES: Unremarkable. OTHER FINDINGS: None. IMPRESSION: NO ACUTE OSSEOUS INJURY. IF SYMPTOMS PERSIST, RECOMMEND REPEAT IMAGING.
--- NOTE | 2017-02-26 14:41 | UC ---
Upper Extremity HPI - HPI Summary HPI Summary: 21 year old male with PMH MR, no medication presents for left shoulder pain after falling onto shoulder while playing football, apin wtih lifting arm to side, pain in shoudler joint. no prior injury/ trauma. no swelling. - History of Current Complaint Chief Complaint: UCUpperExtremity Stated Complaint: SHOULDER INJURY Time Seen by Provider: 02/26/17 13:52 Hx Obtained From: Patient Onset/Duration: Sudden Onset, Lasting Hours Severity Initially: Moderate Severity Currently: Moderate - Allergies/Home Medications Allergies/Adverse Reactions: Allergies Allergy/AdvReac Type Severity Reaction Status Date / Time Penicillins Allergy Intermediate Rash Verified 01/24/17 18:57 cats, dogs, horse, hayfever Allergy Unknown Uncoded 01/24/17 18:57 Reaction Details Home Medications: Home Medications Esomeprazole Magnesium [Nexium] 40 mg PO 02/26/17 [History] PMH/Surg Hx/FS Hx/Imm Hx Previously Healthy: Yes Other History Of: Negative For: HIV, Hepatitis B, Hepatitis C, Anticoagulant Therapy - Surgical History Surgical History: Yes Surgery Procedure, Year, and Place: Sinus surgery 2013, polyps removed. Septum straightened - Family History Known Family History: Positive: Cardiac Disease, Hypertension - mom/dad, Diabetes - dad - Social History Alcohol Use: None Substance Use Type: None Smoking Status (MU): Never Smoked Tobacco Have You Smoked in the Last Year: No - Immunization History Most Recent Influenza Vaccination: fall Most Recent Tetanus Shot: PT DOES NOT KNOW Vaccination Up to Date: Yes Review of Systems Musculoskeletal: Arthralgia, Decreased ROM, Myalgia Is Patient Immunocompromised?: No All Other Systems Reviewed And Are Negative: Yes Physical Exam Triage Information Reviewed: Yes Appearance: Well-Appearing, No Pain Distress, Well-Nourished Vital Signs: Initial Vital Signs Temp 95.5 F 02/26/17 13:32 Pulse 66 02/26/17 13:32 Resp 18 02/26/17 13:32 BP 125/76 02/26/17 13:32 Pulse Ox 99 02/26/17 13:32 Vital Signs Reviewed: Yes Eyes: Positive: Conjunctiva Clear Neck: Positive: Supple, Nontender, No Lymphadenopathy Respiratory: Positive: Chest non-tender Musculoskeletal: Positive: Other: - left shoulder + neers, neg belly, tenderness over anterior hum head, sup sinat, biceps tendon. no swelling, no AC joint/ clavicle tenderness, mild tenderness over trap. Psychological Exam: Normal Skin Exam: Normal Upper Extremity Course/Dx - Course Course Of Treatment: right should RC sprain sling for comfort, follow up with ortho within 2-3 days if no improvement - Differential Dx/Diagnosis Differential Diagnosis/HQI/PQRI: Arthritis, Strain, Sprain Provider Diagnoses: left RC strain Discharge - Discharge Plan Condition: Good Disposition: HOME Patient Education Materials: Rotator Cuff Injury (ED) Forms: *Work Release Referrals: Uriel SHELTON,Hector Pierce [Primary Care Provider] - Additional Instructions: - Motrin as needed for pain - sling as needed for comfort, remove arm from sling and move shoulder at least three time daily - work excuse if pain has not improved. - Follow up with orthopedics is no improvement within 5-7 days
== END 2017-02-26 15:00 | disposition home or self-care (01) ==
LOC: UCEAST 13:28
DX: S46.012A Strain of muscle(s) and tendon(s) of the rotator cuff of left shoulder, initial encounter (principal); W18.30XA Fall on same level, unspecified, initial encounter; Y93.61 Activity, american tackle football; Y92.321 Football field as the place of occurrence of the external cause; Z88.0 Allergy status to penicillin
CPT/HCPCS: 99211; G0463

== ENCOUNTER 2017-03-23 11:28 | Emergency (ER) | payer MEDICAID ==
--- NOTE | 2017-03-23 14:44 | UC ---
Lower Extremity/Ankle HPI - HPI Summary HPI Summary: 21 year old male presents with right ingrown toenail of right foot and left big toe contusion. - History of Current Complaint Stated Complaint: BILATERAL FOOT PAIN Time Seen by Provider: 03/23/17 14:44 Hx Obtained From: Patient Onset/Duration: Sudden Onset Severity Initially: Moderate Severity Currently: Moderate Pain Scale Used: 0-10 Numeric - 7 - Allergies/Home Medications Allergies/Adverse Reactions: Allergies Allergy/AdvReac Type Severity Reaction Status Date / Time Penicillins Allergy Intermediate Rash Verified 03/23/17 14:43 cats, dogs, horse, hayfever Allergy Unknown Uncoded 03/23/17 14:43 Reaction Details Home Medications: Home Medications Ibuprofen TAB* [Motrin TAB* 800 MG] 800 mg PO Q6H PRN 03/23/17 [History Confirmed 03/23/17] PMH/Surg Hx/FS Hx/Imm Hx Previously Healthy: Yes Other History Of: Negative For: HIV, Hepatitis B, Hepatitis C, Anticoagulant Therapy - Surgical History Surgical History: Yes Surgery Procedure, Year, and Place: Sinus surgery 2013, polyps removed. Septum straightened - Family History Known Family History: Positive: Cardiac Disease, Hypertension - mom/dad, Diabetes - dad - Social History Alcohol Use: None Substance Use Type: None Smoking Status (MU): Never Smoked Tobacco Have You Smoked in the Last Year: No - Immunization History Most Recent Influenza Vaccination: no Most Recent Tetanus Shot: PT DOES NOT KNOW Vaccination Up to Date: Yes Review of Systems Constitutional: Negative Skin: Negative Eyes: Negative ENT: Negative Respiratory: Negative Cardiovascular: Negative Gastrointestinal: Negative Genitourinary: Negative Motor: Negative Neurovascular: Negative Musculoskeletal: Other: - right big toe ingrown nail left big toe contusion Neurological: Negative Psychological: Negative All Other Systems Reviewed And Are Negative: Yes Physical Exam Triage Information Reviewed: Yes Vital Signs Reviewed: Yes Eye Exam: Normal ENT Exam: Normal Dental Exam: Normal Neck exam: Normal Neck: Positive: 1 Respiratory Exam: Normal Cardiovascular Exam: Normal Abdominal Exam: Normal Musculoskeletal: Positive: Other: - right big toe ingrown nail left big toe sprain Neurological Exam: Normal Psychological Exam: Normal Skin Exam: Normal Procedures - Procedure Summary Procedure Summary: right big toe ingrown nail partial avulsion, betadine prepped, iris used to cut nail and needle story used to remove nail, minimal bleeding, sterile dressing, and no complications Lower Extremity Course/Dx - Differential Dx/Diagnosis Provider Diagnoses: right big toe ingrown nail. left big toe contusion Discharge - Discharge Plan Condition: Stable Disposition: HOME Prescriptions: DOXYcycline CAP(*) [DOXYcycline 100MG CAP(*)] 100 mg PO BID #14 cap Ibuprofen TAB* [Motrin TAB* 800 MG] 800 mg PO Q6H #30 tab Patient Education Materials: Ingrown Nail (ED), Foot Contusion (ED) Forms: *Work Release Referrals: Tom Rogers MD [Medical Doctor] - Hector Kulkarni [Primary Care Provider] -
[2017-03-23 14:49] VITALS: BP 130/75
[2017-03-23] MEDS ORDERED: Lidocaine 1% MPF* 2 ML VIAL INJ ONE ×2 (14:58)
[2017-03-23] MEDS ORDERED: Ibuprofen TAB* 400 MG PO ONE (15:24)
--- NOTE | 2017-03-23 16:05 | RAD ---
INDICATION: Left first metatarsal phalangeal joint pain one day after "stubbing injury" COMPARISON: None. TECHNIQUE: 3 views of the left foot were obtained. FINDINGS: The adequately corticated bones are properly aligned. Joint spaces appear maintained. No fracture, dislocation or focal bony abnormality is seen. IMPRESSION: Normal radiograph of the left foot. If the patient's symptoms persist, follow-up imaging is recommended.
== END 2017-03-23 16:30 | disposition home or self-care (01) ==
LOC: UCCORT 11:28
DX: L60.0 Ingrowing nail (principal); S90.112A Contusion of left great toe without damage to nail, initial encounter; X58.XXXA Exposure to other specified factors, initial encounter; Y93.9 Activity, unspecified; Y92.9 Unspecified place or not applicable; Z88.0 Allergy status to penicillin
CPT/HCPCS: 11730; 99213; A9270-GY; G0463

== ENCOUNTER 2017-06-07 08:17 | Emergency (ER) | payer MEDICAID ==
[2017-06-07 08:37] VITALS: BP 122/83
--- NOTE | 2017-06-07 09:18 | UC ---
Hand/Wrist HPI - HPI Summary HPI Summary: 22 yo male c/o R 3rd finger injury s/p playing basketball yesterday, finger bent backward. C/o pain, swelling. No other injury reported. - History Of Current Complaint Chief Complaint: UCUpperExtremity Stated Complaint: FINGER INJURY Time Seen by Provider: 06/07/17 08:56 Hx Obtained From: Patient Onset/Duration: Sudden Onset Severity Initially: Moderate Severity Currently: Moderate Pain Intensity: 3 - Allergies/Home Medications Allergies/Adverse Reactions: Allergies Allergy/AdvReac Type Severity Reaction Status Date / Time Penicillins Allergy Intermediate Rash Verified 06/07/17 09:49 cats, dogs, horse, hayfever Allergy Unknown Uncoded 06/07/17 08:37 Reaction Details Home Medications: Home Medications Acetaminophen [Mapap] 500 mg PO Q8HR PRN 06/07/17 [History Confirmed 06/07/17] PMH/Surg Hx/FS Hx/Imm Hx Previously Healthy: Yes Other History Of: Negative For: HIV, Hepatitis B, Hepatitis C, Anticoagulant Therapy - Surgical History Surgical History: Yes Surgery Procedure, Year, and Place: Sinus surgery 2013, polyps removed. Septum straightened - Family History Known Family History: Positive: Cardiac Disease, Hypertension - mom/dad, Diabetes - dad - Social History Alcohol Use: None Substance Use Type: None Smoking Status (MU): Never Smoked Tobacco Have You Smoked in the Last Year: No - Immunization History Most Recent Influenza Vaccination: no Most Recent Tetanus Shot: PT DOES NOT KNOW Vaccination Up to Date: Yes Review of Systems Constitutional: Negative Skin: Negative Eyes: Negative ENT: Negative Respiratory: Negative Cardiovascular: Negative Gastrointestinal: Negative Genitourinary: Negative Motor: Other - see hpi Neurovascular: Negative Musculoskeletal: Arthralgia Neurological: Negative Psychological: Negative Is Patient Immunocompromised?: No All Other Systems Reviewed And Are Negative: Yes Physical Exam Triage Information Reviewed: Yes Appearance: Well-Nourished Vital Signs: Initial Vital Signs Temp 98.0 F 06/07/17 08:32 Pulse 69 06/07/17 08:32 Resp 18 06/07/17 08:32 BP 122/83 06/07/17 08:32 Pulse Ox 100 06/07/17 08:32 Vital Signs Reviewed: Yes Eye Exam: Normal - grossly normal ENT Exam: Normal - grossly normal Neck exam: Normal Neck: Positive: Supple, Nontender Respiratory Exam: Normal - no tachypnea, no dyspnea Cardiovascular Exam: Normal - heart rate regular, good skin color Abdominal Exam: Normal - no c/o pain Musculoskeletal Exam: Other - R 3rd finger + swelling, tender marilee PIP region. No crepitus, cap ref good. + sesnt present LT. Bends finger, but not completely 2/2 pain, swelling. Nontender elsewhere. Neurological Exam: Normal - nonfocal grossly intact Psychological Exam: Normal Skin Exam: Normal Hand/Wrist Course/Dx - Course Course Of Treatment: Declines analgesic. XRAY 3rd finger RH No fx. Reviewed xray and xray report. D/w pt coa / tx plan. Questions answered as posed to the best of my ability. - Differential Dx/Diagnosis Provider Diagnoses: R 3rd finger sprain (PIP) Discharge - Discharge Plan Condition: Stable Disposition: HOME Patient Education Materials: Finger Sprain (ED) Forms: *Work Release Referrals: Uriel SHELTON,Hector Pierce [Primary Care Provider] - Additional Instructions: Follow up with your primary care provider, in the next 2-3 weeks for recheck. Seek medical attention for worse or new problems in the meantime. Splint for at least one week, afterwards splint as needed for comfort. Ok to remove at night if uncomfortable.
--- NOTE | 2017-06-07 09:22 | RAD ---
HISTORY: third finger trauma COMPARISONS: None relevant VIEWS: 3, Frontal, lateral, and oblique views of the third digit of the right hand FINDINGS: BONE DENSITY: Normal. BONES: There is no displaced fracture. JOINTS: There is no arthropathy. ALIGNMENT: There is no dislocation. SOFT TISSUES: Unremarkable. OTHER FINDINGS: None. IMPRESSION: NO ACUTE OSSEOUS INJURY. IF SYMPTOMS PERSIST, RECOMMEND REPEAT IMAGING.
== END 2017-06-07 10:03 | disposition home or self-care (01) ==
LOC: UCEAST 08:17
DX: S63.612A Unspecified sprain of right middle finger, initial encounter (principal); X58.XXXA Exposure to other specified factors, initial encounter; X50.9XXA Other and unspecified overexertion or strenuous movements or postures, initial encounter; Y93.67 Activity, basketball; Y92.9 Unspecified place or not applicable
CPT/HCPCS: 73140; 99211; G0463

== ENCOUNTER 2017-09-13 10:58 | Emergency (ER) | payer MEDICARE, MEDICAID ==
[2017-09-13 11:14] VITALS: BP 144/89
--- NOTE | 2017-09-13 11:24 | UC ---
Respiratory Complaint HPI - HPI Summary HPI Summary: 22 y/o male presents to the urgent care c/o Nasal congestion, sinus pain, dry cough, chest congestion, headaches x 1 month. Pt reports symptoms started w/ a common cold and symptoms have been worsening since then. Pain is 4/10 associated w/ nasal congestion and pressure w/ yellowish nasal discharge. Pt denies fever, SOB, dizziness, ear pain, chest pain, abdominal pain, N/V/D. - History of Current Complaint Chief Complaint: UCRespiratory Stated Complaint: COUGH, AND CHEST CONGESTION Time Seen by Provider: 09/13/17 11:09 Hx Obtained From: Patient Onset/Duration: Gradual Onset, Lasting Weeks - 4 weeks, Still Present, Worse Since - last week Timing: Constant Severity Initially: Mild Severity Currently: Moderate Pain Intensity: 4 Pain Scale Used: 0-10 Numeric Aggravating Factors: Recumbent Position Alleviating Factors: OTC Meds Associated Signs And Symptoms: Positive: Nasal Congestion, Sinus Discomfort. Negative: Fever, Chills, Wheezing - Risk Factors Pulmonary Embolism Risk Factors: Negative Cardiac Risk Factors: Negative Pseudomonas Risk Factors: Negative Tuberculosis Risk Factors: Negative - Allergies/Home Medications Allergies/Adverse Reactions: Allergies Allergy/AdvReac Type Severity Reaction Status Date / Time Penicillins Allergy Intermediate Rash Verified 09/13/17 11:09 cats, dogs, horse, hayfever Allergy Unknown Uncoded 09/13/17 11:09 Reaction Details PMH/Surg Hx/FS Hx/Imm Hx Previously Healthy: Yes Endocrine History: Hypothyroidism Psychological History: Schizophrenia Other History Of: Negative For: HIV, Hepatitis B, Hepatitis C, Anticoagulant Therapy - Surgical History Surgical History: Yes Surgery Procedure, Year, and Place: Sinus surgery 2013, polyps removed. Septum straightened - Family History Known Family History: Positive: Cardiac Disease, Hypertension - mom/dad, Diabetes - dad - Social History Occupation: Disabled Lives: With Family Alcohol Use: Rare Substance Use Type: None Smoking Status (MU): Never Smoked Tobacco Have You Smoked in the Last Year: No - Immunization History Most Recent Influenza Vaccination: no Most Recent Tetanus Shot: PT DOES NOT KNOW Vaccination Up to Date: Yes Review of Systems Constitutional: Negative Skin: Negative Eyes: Negative ENT: Nasal Discharge, Sinus Congestion, Sinus Pain/Tenderness Respiratory: Cough - dry Cardiovascular: Negative Gastrointestinal: Negative Genitourinary: Negative Motor: Negative Neurovascular: Negative Musculoskeletal: Negative Neurological: Headache Psychological: Negative Is Patient Immunocompromised?: No All Other Systems Reviewed And Are Negative: Yes Physical Exam - Summary Physical Exam Summary: Vitals: reviewed General: Well developed, well-nourished male patient with NAD. Head and face: Normocephalic and atraumatic, Positive tenderness over the frontal and maxillary sinuses.. Eyes: PERRLA, EOMI x 2. Normal conjunctiva. No eye discharge. ENT: Ears and TM with normal limits. Nose: edematous and erythematous nasal mucosa with with yellowish discharge and erythematous mucosa. Pharynx with erythema, no exudate. Neck: Supple, no JVD, no carotid bruits and no lymphadenopathy. Lungs: clear, no rales, no rhonchi, no wheezes. CVS: RRR, S1 and S2 present no murmurs or gallops appreciated. Abdomen: soft nontender with positive bowel sounds. Extremities: no edema noted. Neuro: WNL. Skin: warm and dry Triage Information Reviewed: Yes Vital Signs: Initial Vital Signs Temp 96.8 F 09/13/17 11:11 Pulse 81 09/13/17 11:11 Resp 18 09/13/17 11:11 BP 144/89 09/13/17 11:11 Pulse Ox 98 09/13/17 11:11 UC Diagnostic Evaluation - Laboratory O2 Sat by Pulse Oximetry: 98 Respiratory Course/Dx - Course Course Of Treatment: 22 y/o male presents to the urgent care c/o Nasal congestion, sinus pain, dry cough, chest congestion, headaches x 1 month. Pt reports symptoms started w/ a common cold and symptoms have been worsening since then. Pain is 4/10 associated w/ nasal congestion and pressure w/ yellowish nasal discharge. Pt denies fever, SOB, dizziness, ear pain, chest pain, abdominal pain, N/V/D. Hx obtained. Pt w/ bacterial sinusitis on examination.Pt with 4 weeks of symptoms getting worse. Pt PCN allergic. Pt Rx doxycycline PO and flonase nasal spray. Discharge instructions explained to Pt. Also advised to Return to the clinic or PCP if symptoms do not improve. Pt's BP is elevated today advised to decrease salt in diet, monitor BP and f/u with PCP for further management. Pt understood and agreed with plan of care. - Differential Dx/Diagnosis Differential Diagnosis/HQI/PQRI: Bronchitis, Influenza, Lower Resp Infection, Sinusitis Provider Diagnoses: 1- Acute bacterial sinusitis. 2-Elevated BP w/o Hx of HTN Discharge - Sign-Out/Discharge Documenting (check all that apply): Discharge/Admit/Transfer - D/C home - Discharge Plan Condition: Stable Disposition: HOME Prescriptions: DOXYcycline CAP(*) [DOXYcycline 100MG CAP(*)] 100 mg PO BID #20 cap Fluticasone NASAL SPRAY 50MCG* [Flonase NASAL SPRAY 50MCG*] 2 spray BOTH NARES DAILY #1 btl Patient Education Materials: Sinusitis (ED), Low-Sodium Diet (ED) Referrals: Uriel SHELTON,Hector Pierce [Primary Care Provider] - 3 Days Additional Instructions: 1- Please increase fluid intake and rest. take full course of antibiotic to avoid resistance 2-Use Flonase as directed to help drain fluid. Also buy saline drops apply 2 drops on each nostril before going to the shower to clear sinuses 3-Return to the clinic or PCP if symptoms do not improve for further management and treatment 4-Your BP is elevated today. please decrease salt in your diet, monitor BP and if it continues to be elevated please f/u with your PCP for further management - Billing Disposition and Condition Condition: STABLE Disposition: HOME
== END 2017-09-13 11:45 | disposition home or self-care (01) ==
LOC: UCEAST 10:58
DX: J01.80 Other acute sinusitis (principal); B96.89 Other specified bacterial agents as the cause of diseases classified elsewhere; R03.0 Elevated blood-pressure reading, without diagnosis of hypertension; E03.9 Hypothyroidism, unspecified; F20.9 Schizophrenia, unspecified
CPT/HCPCS: 99212; G0463

== ENCOUNTER 2017-10-01 19:23 | Emergency (ER) | payer MEDICARE, MEDICAID ==
[2017-10-01 20:12] VITALS: BP 135/81
--- NOTE | 2017-10-01 21:08 | UC ---
General HPI - HPI Summary HPI Summary: pt states he walked into a [employer] fixture and hit hios head on the L side. he also got a small cut on his L finger at the same time. he notes it hurt when he hit his head but he fells all better now. no loc, CORTES, neck pain. tetanus is utd. - History of Current Complaint Chief Complaint: UCHeadInjury Stated Complaint: HIT HEAD Time Seen by Provider: 10/01/17 21:01 Hx Obtained From: Patient Onset/Duration: Gradual Onset Pain Intensity: 8 Associated Signs & Symptoms: Negative: Headache, Nausea - Allergy/Home Medications Allergies/Adverse Reactions: Allergies Allergy/AdvReac Type Severity Reaction Status Date / Time Penicillins Allergy Intermediate Rash Verified 10/01/17 20:12 cats, dogs, horse, hayfever Allergy Unknown Uncoded 09/13/17 11:09 Reaction Details PMH/Surg Hx/FS Hx/Imm Hx Endocrine History: Thyroid Disease Psychological History: Depression Other History Of: Negative For: HIV, Hepatitis B, Hepatitis C, Anticoagulant Therapy - Surgical History Surgical History: Yes Surgery Procedure, Year, and Place: Sinus surgery 2013, polyps removed. Septum straightened - Family History Known Family History: Positive: Cardiac Disease, Hypertension - mom/dad, Diabetes - dad - Social History Lives: With Family Alcohol Use: Rare Substance Use Type: None Smoking Status (MU): Never Smoked Tobacco Have You Smoked in the Last Year: No - Immunization History Most Recent Influenza Vaccination: no Most Recent Tetanus Shot: PT DOES NOT KNOW Hx Tetanus, Diphtheria Vaccination: Yes Vaccination Up to Date: Yes Review of Systems Constitutional: Negative Skin: Other - cut L 5th finger Eyes: Negative ENT: Negative Respiratory: Negative Cardiovascular: Negative Gastrointestinal: Negative Genitourinary: Negative Motor: Negative Neurovascular: Negative Musculoskeletal: Negative Neurological: Negative Psychological: Negative Is Patient Immunocompromised?: No All Other Systems Reviewed And Are Negative: Yes Physical Exam Triage Information Reviewed: Yes Appearance: Well-Appearing Vital Signs: Initial Vital Signs Temp 97.5 F 10/01/17 20:05 Pulse 70 10/01/17 20:05 Resp 16 10/01/17 20:05 BP 135/81 10/01/17 20:05 Pulse Ox 100 10/01/17 20:05 Vital Signs Reviewed: Yes Eyes: Positive: Conjunctiva Clear, Other: - PERRL, EOMI. ENT: Positive: Pharynx normal, TMs normal. Negative: Nasal congestion, Nasal drainage Neck: Positive: Supple, Nontender, No Lymphadenopathy, Other: - c-spine non tender Respiratory: Positive: Lungs clear, Normal breath sounds Cardiovascular: Positive: RRR, No Murmur Abdomen Description: Positive: Nontender, No Organomegaly, Soft Bowel Sounds: Positive: Present Musculoskeletal: Positive: Other: - Head: small area of slight swelling and erythema L front of scalp. no step off, non tender, no instability. 5/5 strength , 2+ reflexes x4. Neurological: Positive: Other: - a&o x3. cn 2-12 grossly intact. steady gait. Psychological: Positive: Age Appropriate Behavior Skin Exam: Normal, Other - abrasion L 5th finger. s/v/m is intact. Course/Dx - Course Course Of Treatment: neuro exam reassuring. no concern for concussion. abrasion L 5th finger - Differential Dx - Multi-Symptom Provider Diagnoses: Contusion to scalp. abrasion L 5th finger. Discharge - Sign-Out/Discharge Documenting (check all that apply): Discharge/Admit/Transfer - Discharge Plan Condition: Stable Disposition: HOME Patient Education Materials: Head Injury (ED), Abrasion (ED) Referrals: Uriel SHELTON,Hector Pierce [Primary Care Provider] - If Needed - Billing Disposition and Condition Condition: STABLE Disposition: HOME
== END 2017-10-01 21:18 | disposition home or self-care (01) ==
LOC: UCCORT 19:23
DX: S00.03XA Contusion of scalp, initial encounter (principal); S60.417A Abrasion of left little finger, initial encounter; W26.8XXA Contact with other sharp object(s), not elsewhere classified, initial encounter; Y92.9 Unspecified place or not applicable; Z88.0 Allergy status to penicillin; E07.9 Disorder of thyroid, unspecified; F32.9 Major depressive disorder, single episode, unspecified
CPT/HCPCS: 99211; G0463

== ENCOUNTER 2017-12-28 10:11 | Emergency (ER) | payer MEDICARE, MEDICAID ==
--- OUTSIDE RECORDS SUMMARY | 2017-12-28 10:19 | XMS REPORT ---
:1995 External Reference #:[id number] Author Organization [employer] Address [address] [facility] [place] [address] Phone [phone] Care Team Providers Name Role Phone Hector Trevino PA Primary Care Physician Unavailable Payers Type Date Identification Numbers Payment Provider Subscriber Commercial Effective: Policy Number: [id number] [employer]/Todays Armando Ching 2017 Options PayID: [id number] [address] [address] Attn: [place] [address] Medigap Part B Policy Number: [id number] Medicaid Armando Ching PayID: [id number] [address] [place] [address] Problems Date Description Provider Status Onset: 12/20/2017 Other specified joint disorders, right Hernán Villalba MD Active elbow Family History Date Family Member(s) Problem(s) Comments General Hypertension General Cancer General Depression General Diabetes General Rheumatoid Arthritis Social History Type Date Description Comments Marital Status Single Lives With Family Occupation Currently Working ETOH Use Rarely consumes alcohol Recreational Drug Use Denies Drug Use Smoking Patient has never smoked Exercise Type/Frequency Exercises rarely Allergies, Adverse Reactions, Alerts Date Description Reaction Status Severity Comments 12/20/2017 Penicillins active Medications Medication Date Status Form Strength Qnty SIG Indications Ordering Provider Levothyroxine 07/03/ Active Tablets 75mcg Every Day Unknown Sodium 2014 Melatonin 06/28/ Active Tablets 3mg 30tabs 2 by Unknown 2013 mouth every day Sertraline HCL 06/28/ Active Tablets 125mg 30tabs 1 by Unknown 2013 mouth every day Risperdal 06/28/ Active Tablets 0.5mg Twice Unknown 2014 Daily Fluticasone / Active Suspension 50mcg/Act 2 sprays Unknown Propionate 0000 each nostril qd. Ibuprofen / Active Tablets 600mg three Unknown 0000 times a day Motrin 01/31/ Hx Tablets 600mg 30tabs Q8H Unknown Repack 2016 - 2017 Excedrin 10/10/ Hx Tablets 250-250-65 Once Unknown Migraine 2016 - mg 2017 Zoloft 06/28/ Hx Tablets 100mg Bedtime Unknown 2013 - 2017 Vital Signs Date Vital Result Comment 12/20/2017 Height 73 inches 6'1" Weight 255.00 lb BP Systolic Sitting 126 mmHg BP Diastolic Sitting 66 mmHg Respiratory Rate 16 /min Pain Level 4 BMI (Body Mass Index) 33.6 kg/m2 02/01/2016 Height 73 inches Weight 240.00 lb Heart Rate 72 /min BP Systolic 125 mmHg BP Diastolic 83 mmHg Respiratory Rate 16 /min Body Temperature 98.2 F O2 % BldC Oximetry 100 % Height Percentile 89 % Weight Percentile >97th Results Description No Information Procedures Date CPT Code Description Status 05/05/2014 24396 EKG, Interpretation Only Completed 04/03/2010 70925 Rad Exam; Elbow, Comp Completed 03/02/2010 15309 FX Epicondyle W/O Manipulation Completed Encounters Type Date Location Provider CPT E/M Dx Office Visit 12/20/2017 [facility] [place] [address] M25.821 10:45a Of [facility] AT [place] Plan of Care Future Appointment(s):01/03/2018 9:30 am - Hernán Villalba MD at [facility] AT [place]89/17/2018 - Hernán Villalba [id number] Other specified joint disorders, right elbowNew Xrays:CT Extremity Upper Right WoFollow up:Follow up: after CT is done (2 weeks)
[2017-12-28 10:35] VITALS: BP 123/76
--- NOTE | 2017-12-28 11:00 | UC ---
Ear Complaint HPI - HPI Summary HPI Summary: pain in both ears x 1 week. no injury or drainage or fever - History of Current Complaint Chief Complaint: UCEar Stated Complaint: BILATERAL EAR COMPLAINT Time Seen by Provider: 12/28/17 10:51 Hx Obtained From: Patient Onset/Duration: Gradual Onset Pain Intensity: 4 Associated Signs/Symptoms: Negative: Discharge, Foreign Body Sensation, Trauma to Ear - Allergies/Home Medications Allergies/Adverse Reactions: Allergies Allergy/AdvReac Type Severity Reaction Status Date / Time Penicillins Allergy Intermediate Rash Verified 12/28/17 10:26 cats, dogs, horse, hayfever Allergy Unknown Uncoded 12/28/17 10:26 Reaction Details Home Medications: Home Medications Acetaminophen [Tylenol Extra Strength] 1,000 mg PO PRN 12/28/17 [History] PMH/Surg Hx/FS Hx/Imm Hx Endocrine History: Thyroid Disease Psychological History: Depression Other History Of: Negative For: HIV, Hepatitis B, Hepatitis C, Anticoagulant Therapy - Surgical History Surgical History: Yes Surgery Procedure, Year, and Place: Sinus surgery 2013, polyps removed. Septum straightened - Family History Known Family History: Positive: Cardiac Disease, Hypertension - mom/dad, Diabetes - dad - Social History Occupation: Employed Full-time Lives: With Family Alcohol Use: Occasionally Substance Use Type: None Smoking Status (MU): Never Smoked Tobacco Have You Smoked in the Last Year: No - Immunization History Most Recent Influenza Vaccination: no Most Recent Tetanus Shot: PT DOES NOT KNOW Hx Tetanus, Diphtheria Vaccination: Yes Vaccination Up to Date: Yes Review of Systems Constitutional: Negative Skin: Negative Eyes: Negative ENT: Ear Ache - x2 Respiratory: Negative Cardiovascular: Negative Gastrointestinal: Negative Genitourinary: Negative Motor: Negative Neurovascular: Negative Musculoskeletal: Negative Neurological: Negative Psychological: Negative Is Patient Immunocompromised?: No All Other Systems Reviewed And Are Negative: Yes Physical Exam Triage Information Reviewed: Yes Appearance: Well-Appearing Vital Signs: Initial Vital Signs Temp 98.3 F 12/28/17 10:28 Pulse 65 12/28/17 10:28 Resp 18 12/28/17 10:28 BP 123/76 12/28/17 10:28 Pulse Ox 99 12/28/17 10:28 Vital Signs Reviewed: Yes Eyes: Positive: Conjunctiva Clear ENT: Positive: Pharynx normal, TMs normal, Other - Both canals with erythema and discomfort with auricular tug. Mastoid non tender and no auricular adenopathy.. Negative: Nasal congestion, Nasal drainage Neck: Positive: Supple, Nontender, No Lymphadenopathy Respiratory: Positive: Lungs clear, Normal breath sounds Cardiovascular: Positive: RRR, No Murmur Abdomen Description: Positive: Nontender, No Organomegaly, Soft Bowel Sounds: Positive: Present Musculoskeletal: Positive: ROM Intact Neurological: Positive: Alert Skin Exam: Normal Ear Complaint Course/Dx - Differential Dx/Diagnosis Provider Diagnoses: OE x2 Discharge - Sign-Out/Discharge Documenting (check all that apply): Patient Departure All imaging exams completed and their final reports reviewed: No Studies - Discharge Plan Condition: Stable Disposition: HOME Prescriptions: Ciproflox/Dexameth OTIC.SUSP* [Ciprodex OTIC.SUSP*] 4 drop .SEE ORDER BID 7 Days #1 btl Patient Education Materials: Otitis Externa (ED) Referrals: Hector Kulkarni [Primary Care Provider] - 7 Days - Billing Disposition and Condition Condition: STABLE Disposition: Home
== END 2017-12-28 11:08 | disposition home or self-care (01) ==
LOC: UCCORT 10:11
DX: H60.93 Unspecified otitis externa, bilateral (principal); Z88.0 Allergy status to penicillin
CPT/HCPCS: 99212; G0463

== ENCOUNTER 2018-01-05 19:09 | Emergency (ER) | payer MEDICARE, MEDICAID ==
--- OUTSIDE RECORDS SUMMARY | 2018-01-05 19:14 | XMS REPORT ---
:1995 External Reference #:[id number] Author Organization [employer] Address [address] [facility] [place] [address] Phone [phone] Care Team Providers Name Role Phone Hector Trevino PA Primary Care Physician Unavailable Payers Type Date Identification Numbers Payment Provider Subscriber Commercial Effective: Policy Number: [id number] [employer]/Todays Armando Ching 2017 Options PayID: [id number] [address] [address] Attn: [place] [address] Medigap Part B Policy Number: [id number] Medicaid Armando Ching PayID: [id number] [address] [place] [address] Problems Date Description Provider Status Onset: 12/20/2017 [...] 600mg three Unknown 0000 times a day Ciprodex / Active Suspension 0.3-0.1% instill 4 Unknown 0000 drops into affected ears twice daily for 7 days Motrin 01/31/ Hx Tablets 600mg 30tabs Q8H Unknown Repack 2015 - 2017 Excedrin 10/10/ Hx Tablets 250-250-65 Once Unknown Migraine 2016 - mg 2017 Zoloft 06/28/ Hx Tablets 100mg Bedtime Unknown 2013 - 2017 Vital Signs Date Vital Result Comment 01/03/2018 Height 73 inches 6'1" Weight 255.00 lb BP Systolic Sitting 112 mmHg BP Diastolic Sitting 68 mmHg Respiratory Rate 16 /min Pain Level 3 ocking and popping more often BMI (Body Mass Index) 33.6 kg/m2 12/20/2017 Height 73 inches 6'1" Weight 255.00 [...] Procedures Date CPT Code Description Status 05/05/2014 97723 EKG, Interpretation Only Completed 04/03/2010 36417 Rad Exam; Elbow, Comp Completed 03/02/2010 38065 FX Epicondyle W/O Manipulation Completed Encounters Type Date Location Provider CPT E/M Dx Office Visit 12/20/2017 [facility] [place] [address] M25.821 10:45a Of [facility] AT [place] Plan of Care Future Appointment(s):01/31/2018 8:00 am - Hernán Villalba MD at [facility] AT [place]31/17/2018 2:00 pm - Hernán Villalba MD01/03/2018 - Hernán Villalba [id number] Other specified joint disorders, right elbowFollow up: Follow up: 7-10 days before surgery
[2018-01-05 19:22] VITALS: BP 136/82
[2018-01-05] MEDS ORDERED: Azithromycin TAB* 250 MG PO ONE (19:56)
--- NOTE | 2018-01-05 20:00 | UC ---
Throat Pain/Nasal Boris HPI - HPI Summary HPI Summary: see 9 days ago for bilateral ear pain used ear drops without relief---now have frontal and ma - History of Current Complaint Chief Complaint: UCEar Stated Complaint: EAR PAIN Time Seen by Provider: 01/05/18 19:29 Hx Obtained From: Patient Onset/Duration: Gradual Onset, Lasting Days - 10 Pain Intensity: 5 Pain Scale Used: 0-10 Numeric Cough: None Associated Signs & Symptoms: Positive: Sinus Discomfort, Nasal Discharge - Allergies/Home Medications Allergies/Adverse Reactions: Allergies Allergy/AdvReac Type Severity Reaction Status Date / Time Penicillins Allergy Intermediate Rash Verified 01/05/18 19:22 cats, dogs, horse, hayfever Allergy Unknown Uncoded 01/05/18 19:22 Reaction Details PMH/Surg Hx/FS Hx/Imm Hx Previously Healthy: No Endocrine History: Hypothyroidism Psychological History: Depression Other History Of: Negative For: HIV, Hepatitis B, Hepatitis C, Anticoagulant Therapy - Surgical History Surgical History: Yes Surgery Procedure, Year, and Place: Sinus surgery 2013, polyps removed. Septum straightened - Family History Known Family History: Positive: Cardiac Disease, Hypertension - mom/dad, Diabetes - dad - Social History Occupation: Unemployed Lives: With Family Alcohol Use: Occasionally Substance Use Type: None Smoking Status (MU): Never Smoked Tobacco Have You Smoked in the Last Year: No - Immunization History Most Recent Influenza Vaccination: no Most Recent Tetanus Shot: PT DOES NOT KNOW Hx Tetanus, Diphtheria Vaccination: Yes Vaccination Up to Date: Yes Review of Systems Constitutional: Negative Skin: Negative Eyes: Negative ENT: Ear Ache, Sinus Congestion, Sinus Pain/Tenderness Respiratory: Negative Cardiovascular: Negative Gastrointestinal: Negative Genitourinary: Negative Motor: Negative Neurovascular: Negative Musculoskeletal: Negative Neurological: Headache Psychological: Negative Is Patient Immunocompromised?: No All Other Systems Reviewed And Are Negative: Yes Physical Exam Triage Information Reviewed: Yes Appearance: Well-Appearing, No Pain Distress, Well-Nourished Vital Signs: Initial Vital Signs Temp 97.3 F 01/05/18 19:17 Pulse 70 01/05/18 19:17 Resp 20 01/05/18 19:17 BP 136/82 01/05/18 19:17 Pulse Ox 98 01/05/18 19:17 Vital Signs Reviewed: Yes Eye Exam: Normal Eyes: Positive: Conjunctiva Clear ENT Exam: Normal ENT: Positive: Normal ENT inspection, Hearing grossly normal, Pharynx normal, Nasal congestion, TMs normal, Sinus tenderness, Uvula midline. Negative: Tonsillar swelling, Trismus, Muffled voice, Hoarse voice, Dental tenderness Dental Exam: Normal Neck exam: Normal Neck: Positive: Supple, Nontender Respiratory Exam: Normal Respiratory: Positive: Chest non-tender, Lungs clear, Normal breath sounds, No respiratory distress, No accessory muscle use Cardiovascular Exam: Normal Cardiovascular: Positive: RRR, Pulses Normal, Brisk Capillary Refill Musculoskeletal Exam: Normal Musculoskeletal: Positive: Strength Intact, ROM Intact, No Edema Neurological Exam: Normal Neurological: Positive: Alert, Muscle Tone Normal Psychological Exam: Normal Skin Exam: Normal Throat Pain/Nasal Course/Dx - Course Assessment/Plan: Zithromax, Zyrtec D, Tylenol, Ibuprofen follow with pcp - Differential Dx/Diagnosis Provider Diagnoses: Acute rhinosinusitis Discharge - Sign-Out/Discharge Documenting (check all that apply): Patient Departure All imaging exams completed and their final reports reviewed: No Studies - Discharge Plan Condition: Stable Disposition: HOME Prescriptions: Azithromycin TAB* [Zithromax TAB (Z-ANNE) 250 mg #6 tabs] 250 mg PO DAILY #4 tab Cetirizine HCl/Pseudoephedrine [Zyrtec-D Tablet] 1 each PO BID #20 tab.er.12h Patient Education Materials: Sinusitis (ED) Referrals: Hector Kulkarni [Primary Care Provider] - If Needed - Billing Disposition and Condition Condition: STABLE Disposition: Home - Attestation Statements Provider Attestation: Per institutional requirements, I have reviewed the chart, however, I was not consulted specifically or made aware of this patient by the midlevel provider. I did not personally evaluate, interact with , or disposition this patient.
== END 2018-01-05 20:06 | disposition home or self-care (01) ==
LOC: UCEAST 19:09
DX: J01.90 Acute sinusitis, unspecified (principal); Z88.0 Allergy status to penicillin; Z91.048 Other nonmedicinal substance allergy status
CPT/HCPCS: 99212; A9270-GY; G0463

== ENCOUNTER 2018-02-03 06:25 | Day surgery (SDC) | payer MEDICARE, MEDICAID ==
[~2018-02-03 06:25] MED LIST: Buffered Lidocaine 0.9% SYRIN* 5 ML/SYR SYRINGE INTRADERM ONE; Sodium Citrate/Citric Acid* 15 ML UDC PO ONE
[2018-02-03] MEDS ORDERED: Sodium Citrate/Citric Acid* 15 ML UDC ONE (06:48)
[2018-02-03] MEDS ORDERED: Clindamycin 900 MG/D5W BAG(*) 900 MG/50 ML BAG IVPB ONE (06:49)
[2018-02-03] MEDS ORDERED: Propofol* 10 MG/ML 20 ML BTL IV PUSH ONE ×2 (07:40→08:30)
[2018-02-03] MEDS ORDERED: Lidocaine 2% PF * 5 ML VIAL ONE (07:41)
[2018-02-03] MEDS ORDERED: Rocuronium* 10 MG/ML VIAL ONE (07:44)
[2018-02-03] MEDS ORDERED: fentaNYL* 50 MCG/ML 2 ML VIAL (100 MCG VIAL) ONE ×3 (07:44→10:44)
[2018-02-03] MEDS ORDERED: ROPIVACAINE 5 MG/ML 30 ML BTL (0.5%) ONE (08:10)
[2018-02-03] MEDS ORDERED: Dexamethasone IV* 4 MG/ML 1 ML (4 MG) ONE (08:15)
[2018-02-03] MEDS ORDERED: Ketorolac INJ* 30 MG/ML 1 ML VIAL ONE (09:16)
[2018-02-03] MEDS ORDERED: Neostigmine Methylsulfate* 1 MG/ML 10 ML VIAL (1 mg/ml) ONE (09:20)
[2018-02-03] MEDS ORDERED: Glycopyrrolate IV* 0.2 MG/ML 1 ML VIAL ONE (09:20)
--- NOTE | 2018-02-03 09:27 | HP ---
HISTORY AND PHYSICAL: DATE OF ADMISSION: 02/03/18 CHIEF COMPLAINT: Right elbow pain. HISTORY OF PRESENT ILLNESS: Trev is a 22-year-old. He has had progressive right elbow pain ever since early October of this year. He is now getting lot of locking and catching and popping. He has a quite a bit of elbow pain associated with this. MRI, CT scan, x-rays have all showed right elbow capitellar osteochondral defect. PAST MEDICAL HISTORY: Hypothyroidism, depression, and anxiety. PAST SURGICAL HISTORY: Sinus surgery in 2013. MEDICATIONS: 1. Levothyroxine. 2. Melatonin. 3. Sertraline. 4. Risperdal. 5. Fluticasone. 6. Ibuprofen. 7. Ciprodex. ALLERGIES: PENICILLIN. FAMILY HISTORY: Diabetes, hypertension, rheumatoid arthritis. SOCIAL HISTORY: He lives with his family. He is currently working. He denies tobacco use. He rarely consumes alcohol and denies recreational drug use. REVIEW OF SYSTEMS: A full 14-point review of systems was conducted and is negative except for that mentioned above. PHYSICAL EXAMINATION GENERAL: Awake and alert, in no distress. LUNGS: Clear. CARDIAC: Regular. MUSCULOSKELETAL: Right upper extremity, he has tenderness over the capitellum, otherwise the alignment is good. There is good motion in the elbow, lacking to small amount of terminal extension, but with good flexion, good pronation, and supination. SKIN: Intact. No rash or lesions. DIAGNOSTIC STUDIES: X-rays, MRI and CT scan have all showed a osteochondral defect in the capitellum, it appears unstable. IMPRESSION: Right elbow capitellum, unstable osteochondral defect/fracture. PLAN: I have again reviewed his treatment options with Trev. I think given the size of the defect and his demands on the elbow and that he is not a throwing athlete, I think I would prefer to use an allograft. We discussed risks and benefits. Plan will be for right elbow capitellar osteochondral allograft transfer to the osteochondral defect. Follow up will be at surgery. [id number]/CPS #: [id number] PIA
[2018-02-03] MEDS ORDERED: Ondansetron INJ* 2 MG/ML VIAL IV PRN (09:29)
[2018-02-03] MEDS ORDERED: Naloxone* 0.4 MG/ML 1 ML VIAL IV PRN (09:29)
[2018-02-03] MEDS: fentaNYL* 50 MCG/ML 2 ML VIAL (100 MCG VIAL) IV PRN ×3 (09:55→10:46)
[2018-02-03] MEDS ORDERED: HYDROcodone/ACETAMIN 5-325 MG* 1 TAB ONE (09:57)
[2018-02-03] MEDS ORDERED: Ondansetron INJ* 2 MG/ML VIAL ONE (10:21)
[2018-02-03 11:33] VITALS: BP 124/86
[2018-02-03] MEDS ORDERED: Morphine VIAL* 10 MG/ML 1 ML VIAL ONE (12:24)
--- NOTE | 2018-02-13 22:52 | OP ---
OPERATIVE REPORT: DATE OF OPERATION: 02/03/18 - SDS DATE OF : [birth year] SURGEON: Hernán Villalba MD RECREATIONAL VEHICLE RESORT MANAGER SURGEON: Lebron Pepe MD An shampoo assistant surgeon was needed due to the complexity of the procedure. ANESTHESIA: General. PRE-OP DIAGNOSIS: Right capitellar large osteochondral unstable defect. POST-OP DIAGNOSIS: Right capitellar large osteochondral unstable defect. OPERATIVE PROCEDURE: Open repair of right capitellar large osteochondral defect with fresh osteochondral femoral condyle allograft. INDICATIONS: Trev is 22, he has had progressive elbow pain with significant locking and catching. Workup revealed a very unstable large osteochondral defect. We preoperatively templated this at 12 mm. I talked to him about doing this with a graft from his knee versus cadaver graft. I thought that given that Trev is not a throwing athlete, he is a great candidate for the allograft especially given the size of the lesion. He understands the risks and benefits including the risk of persistent pain despite surgery, he wanted proceed. ESTIMATED BLOOD LOSS: 2 mL. COMPLICATIONS: None. FINDINGS: See above and below. DESCRIPTION OF PROCEDURE: Trev was seen in the preoperative holding area. The correct site, side and procedure were identified. We came back to the operating room, where the arm was prepped and draped in the usual fashion. He was positioned supine with the use of hand table. A time-out was performed. The arm was exsanguinated with the Esmarch and the tourniquet inflated to 250 mmHg. I went ahead and flexed the elbow and propped the arm up on some towels. A posterior incision was made over the posterolateral elbow over the anconeus muscle. The anconeus muscle fibers were splint in line with the muscle fibers and retracted out of the way. A portion of the anconeus was removed. The capsule was opened to expose the elbow joint. The osteochondral defect was immediately notable. It was very large and unstable. I used the Amsterdam blade to sharply debride the margins of the osteochondral defect and the fragment was excised and sent as a specimen. I then placed my guidewire and the core reamer was brought in over the guidewire. This was the [employer] equipment. The guidewire was placed in the central portion of the defect. I went ahead and drilled down to a depth of 10 mm. I then removed the guidewire and we had a very nice defect with margins consistent of healthy articular cartilage. At this point, I brought in my femoral condyle osteochondral graft. I used the Arthrex allograft story to pin the femoral condyle into place. A 12 mm guide was selected and then I cored out 12 mm osteochondral graft. This was then secured and trimmed to the appropriate depth with the sagittal saw. Once I had the graft completely prepared, we irrigated out everything. I then used the insertion device to place the graft into the defect in the capitellum. The graft was then tamped down using a very soft plastic tamp. Once I had a nice line to line fit, went ahead and checked everything. The graft was completely stable. No need for further fixation was needed. The elbow had full range of motion without any clicking, catching or popping. At this point, the elbow was irrigated out. The capsule was closed with Vicryl suture. The fascia overlying the anconeus was repaired with Vicryl suture. The skin was closed with 3-0 nylon suture. The wounds were appropriately dressed. Local anesthetic was infiltrated all about the operative area. A long-arm splint was applied with the elbow in about 80 degrees of flexion. The tourniquet was deflated and the hand pinked up immediately. He was taken to the recovery room in stable condition. [id number]/CPS #: [id number] PIA
== END 2018-02-03 11:36 | disposition home or self-care (01) ==
LOC: OR 06:25
PROVIDERS: ATTEND Orthopaedic Surgery Hand Surgery
DX: S42.491K Other displaced fracture of lower end of right humerus, subsequent encounter for fracture with nonunion (principal); M25.821 Other specified joint disorders, right elbow; Y93.67 Activity, basketball; Y92.310 Basketball court as the place of occurrence of the external cause; E03.9 Hypothyroidism, unspecified; F41.8 Other specified anxiety disorders; Z68.32 Body mass index [BMI] 32.0-32.9, adult; W19.XXXD Unspecified fall, subsequent encounter
CPT/HCPCS: 88304; 88311; A9270-GY; C1776; J1100; J1885; J2270; J2405; J2704; J2710; J2795; J3010

== ENCOUNTER 2018-02-19 13:59 | Emergency (ER) | payer MEDICARE, MEDICAID ==
--- OUTSIDE RECORDS SUMMARY | 2018-02-19 14:04 | XMS REPORT ---
:1995 External Reference #:[id number] Author Organization [employer] Address [address] [place] [address] [place] [address] Phone [phone] Care Team Providers Name Role Phone Hector Trevino PA Primary Care Physician Unavailable Payers Type Date Identification Numbers Payment Provider Subscriber Commercial Effective: Policy Number: [id number] Todays Armando Ching 2017 Option/German pr PayID: [id number] [address] [address] Attn: [place] [address] Medigap Part B Policy Number: [id number] Medicaid Armando Ching PayID: [id number] [address] [place] [address] Problems Date Description Provider Status Onset: 12/20/2017 [...] Form Strength Qnty SIG Indications Ordering Provider [place] 02/03/ Active Tablets 5-325mg 30tabs one tab Hernán 2018 by mouth Orly, every 4-6 MD hours as needed pain Levothyroxine 07/03/ Active Tablets 75mcg Every Day Unknown Sodium 2014 Melatonin 06/28/ Active Tablets 3mg 30tabs 2 by Unknown 2013 mouth every day Sertraline HCL 06/28/ Active Tablets 125mg 30tabs 1 by Unknown 2013 mouth every day Risperdal 06/28/ Active Tablets 0.5mg Twice Unknown 2013 Daily Fluticasone / Active Suspension 50mcg/Act 2 [...] 2017 Vital Signs Date Vital Result Comment 02/18/2018 Height 73 inches 6'1" Body Temperature 98.6 F 01/03/2018 Height 73 inches 6'1" Weight 255.00 [...] Percentile 89 % Weight Percentile >97th Results Test Date Test Result H/L Range Note Laboratory test 02/03/2018 Surgical Pathology SEE RESULT BELOW 1 finding Laboratory test 02/02/2018 Med Fem Condyle SEE RESULTS BELO 2, 3 finding <SEE NOTE> 1 SEE RESULT BELOW Name: ARMANDO CHING : [address]: Hernán Villalba MD Acct: [id number] Unit: [id number] AGE: 22 Location: OR Re02/03/18 SEX: M Status: [facility] SPEC: [id number] DARIA: 02/03/18- SUBM DR: Hernán Villalba MD REQ: [id number] RECD: 02/03/18 STATUS: SOUT _ ORDERED: Decal, LEVEL 3 FINAL DIAGNOSIS Right elbow, capsular lesion, excision: -- Osteocartilaginous fragment/loose body with marked reactive bony and cartilaginous changes. PRE-OPERATIVE DIAGNOSIS Right capitellum osteochrondral defect/unstable fracture GROSS DESCRIPTION The specimen is received in formalin labeled, Right Elbow Capsular Lesion, and consists of a 1.2 x 0.8 x 0.4 cm ramirez-pink rubbery smooth to shaggy ovoid focally calcified fibrous tissue fragment which is inked, serially sectioned and entirely submitted in one cassette following decalcification. Signed by and Reported on: Hector Armas MD 07/21 1552 END OF REPORT DEPARTMENT OF PATHOLOGY, [address] [place] [address] Hector Armas M.D. Director [facility] # [id number] 2 OTHER DISORDERS OF JOINT DISORDERS, RIGHT ELBOW 3 SEE RESULTS BELOW [id number] MED FEM CONDYLE TRANSFUSED 02/03/18 0720 Procedures Date CPT Code Description Status 05/05/2014 72285 EKG, Interpretation Only Completed 04/03/2010 65536 Rad Exam; Elbow, Comp Completed 03/02/2010 00512 FX Epicondyle W/O Manipulation Completed Encounters Type Date Location Provider CPT E/M Dx Office Visit 01/03/2018 [facility] [place] [address] M25.821 9:30a [facility] [place] Office Visit 12/20/2017 [facility] [place] [address] M25.821 10:45a Of [facility] AT [place] Plan of Care Future Appointment(s):03/18/2018 11:00 am - Hernán Villalba MD at [facility]
[2018-02-19 14:18] VITALS: BP 124/86
--- NOTE | 2018-02-19 14:44 | UC ---
FLU HPI - HPI Summary HPI Summary: [id number] otherwise healthy male presents with 2 weeks of worsening cough, congestion and now facial pain. He denies any fever, shakes or chills. He recently had surgery 15 days ago to repair a malunion and his right elbow. He received a bone graft. There is no increased pain in the splinted arm. He states that both the ears are now plugged that he has difficulty hearing from them with some discomfort. The biggest difference recently is maxillary and frontal discomfort. - History of Current Complaint Chief Complaint: UCGeneralIllness Stated Complaint: DOUBLE EAR PAIN, CONGESTION Hx Obtained From: Patient Pain Intensity: 6 - Allergy/Home Medications Allergies/Adverse Reactions: Allergies Allergy/AdvReac Type Severity Reaction Status Date / Time Penicillins Allergy Intermediate Rash Verified 02/19/18 14:19 cats, dogs, horse, hayfever Allergy Unknown Uncoded 02/19/18 14:19 Reaction Details Home Medications: Home Medications oxyCODONE/Acetam5/325MG PREPAK [Percocet 5/325 TAB*] 1 tab PO QID PRN 02/19/18 [ History Confirmed 02/19/18] PMH/Surg Hx/FS Hx/Imm Hx Previously Healthy: Yes Other History Of: Negative For: HIV, Hepatitis B, Hepatitis C, Anticoagulant Therapy - Surgical History Surgical History: Yes - Recent right elbow surgery Surgery Procedure, Year, and Place: Sinus surgery 2013, polyps removed. Septum straightened. right elbow bone graft 02/03 - Family History Known Family History: Positive: Cardiac Disease, Hypertension - mom/dad, Diabetes - dad - Social History Alcohol Use: Occasionally Substance Use Type: None Smoking Status (MU): Never Smoked Tobacco Have You Smoked in the Last Year: No - Immunization History Most Recent Influenza Vaccination: no Most Recent Tetanus Shot: PT DOES NOT KNOW Hx Tetanus, Diphtheria Vaccination: Yes Vaccination Up to Date: Yes Review of Systems Constitutional: Fatigue Skin: Negative Eyes: Negative ENT: Sore Throat, Ear Ache, Nasal Discharge, Sinus Congestion, Sinus Pain/ Tenderness Respiratory: Cough Cardiovascular: Negative Is Patient Immunocompromised?: No All Other Systems Reviewed And Are Negative: Yes Physical Exam Triage Information Reviewed: Yes Appearance: Well-Appearing, No Pain Distress, Well-Nourished Vital Signs: Initial Vital Signs Temp 98.8 F 02/19/18 14:11 Pulse 73 02/19/18 14:11 Resp 16 10/17/18 14:11 BP 124/86 02/19/18 14:11 Pulse Ox 100 02/19/18 14:11 Vital Signs Reviewed: Yes Eye Exam: Normal ENT: Positive: Pharyngeal erythema, Nasal congestion, TM dull, Sinus tenderness - maxillary and frontal. Negative: TM bulging, Tonsillar swelling, Tonsillar exudate, Muffled voice Neck: Positive: Supple, Nontender, No Lymphadenopathy Respiratory: Positive: Lungs clear Cardiovascular: Positive: RRR Musculoskeletal Exam: Other - RUQ in splint/sling Skin Exam: Normal Flu Course/Dx - Course Course Of Treatment: Sister also here with similar. Began likely as viral URI now sinus pain/tenderness c/w sinusitis. Allergic to PCN -- Rx Doxy. F/U PMD. - Differential Dx/Diagnosis Differential Diagnosis/HQI/PQRI: Bronchitis, Pneumonia, Upper Respiratory Infection Provider Diagnoses: Acute sinusitis ( >2wks of sx) Discharge - Sign-Out/Discharge Documenting (check all that apply): Patient Departure All imaging exams completed and their final reports reviewed: No Studies - Discharge Plan Condition: Improved Disposition: HOME Prescriptions: DOXYcycline CAP(*) [DOXYcycline 100MG CAP(*)] 100 mg PO BID #20 cap Guaifenesin/Pseudo 600/60(NF) [Mucinex D 600/60 (NF)] 1 tab PO BID PRN #20 tab PRN Reason: Congestion Patient Education Materials: Sinusitis (ED) Referrals: Uriel SHELTON,Hector Pierce [Primary Care Provider] - Additional Instructions: Humidifier while sleeping. Avoid smokers. Return with fever, increased facial pain, worse or other concerns. - Billing Disposition and Condition Condition: IMPROVED Disposition: Home - Attestation Statements Document Initiated by Scribe: Yoselin
== END 2018-02-19 14:45 | disposition home or self-care (01) ==
LOC: UCEAST 13:59
DX: J01.90 Acute sinusitis, unspecified (principal); Z88.0 Allergy status to penicillin
CPT/HCPCS: 99212; G0463

== ENCOUNTER 2018-03-03 17:08 | Emergency (ER) | payer MEDICARE, MEDICAID ==
--- NOTE | 2018-03-03 17:48 | UC ---
Throat Pain/Nasal Boris HPI - HPI Summary HPI Summary: 22 yo male presents with b/l ear pain for the last 2 weeks that is worse in the right ear over the last 4 days with muffled hearing. Denies fever, chills, sinus symptoms, sore throat. - History of Current Complaint Stated Complaint: BILATERAL EAR CONCERNS Time Seen by Provider: 03/03/18 17:48 Hx Obtained From: Patient Onset/Duration: Sudden Onset Severity: Mild Pain Intensity: 4 Pain Scale Used: 0-10 Numeric - Allergies/Home Medications Allergies/Adverse Reactions: Allergies Allergy/AdvReac Type Severity Reaction Status Date / Time Penicillins Allergy Intermediate Rash Verified 02/19/18 14:19 cats, dogs, horse, hayfever Allergy Unknown Uncoded 02/19/18 14:19 Reaction Details Home Medications: Home Medications Ibuprofen TAB* [Advil TAB*] 800 mg PO Q8H PRN 03/03/18 [History Confirmed ] PMH/Surg Hx/FS Hx/Imm Hx Psychological History: Anxiety, Depression, Bipolar Disorder Other History Of: Negative For: HIV, Hepatitis B, Hepatitis C, Anticoagulant Therapy - Surgical History Surgical History: Yes - Recent right elbow surgery Surgery Procedure, Year, and Place: Sinus surgery 2013, polyps removed. Septum straightened. right elbow bone graft 02/03 - Family History Known Family History: Positive: Cardiac Disease, Hypertension - mom/dad, Diabetes - dad - Social History Lives: With Family Alcohol Use: Occasionally Substance Use Type: None Smoking Status (MU): Never Smoked Tobacco Have You Smoked in the Last Year: No - Immunization History Most Recent Influenza Vaccination: no Most Recent Tetanus Shot: PT DOES NOT KNOW Hx Tetanus, Diphtheria Vaccination: Yes Vaccination Up to Date: Yes Review of Systems Constitutional: Negative Skin: Negative Eyes: Negative ENT: Ear Ache Respiratory: Negative Cardiovascular: Negative Gastrointestinal: Negative Neurological: Negative Psychological: Negative All Other Systems Reviewed And Are Negative: Yes Physical Exam - Summary Physical Exam Summary: GENERAL: NAD. WDWN. No pain distress. SKIN: No rashes, sores, lesions, or open wounds. HEENT: Head: AT/NC Eyes: EOM intact. Conjunctiva clear without inflammation or discharge. Ears: Hearing grossly normal. RIGHT EAR: Mild white purulent discharge. Mild canal edema. TM intact and WNL. LEFT EAR: TM intact and WNL. No canal edema or drainage. Nose: Nasal mucosa pink and moist. NTTP maxillary and frontal sinus. Throat: Posterior oropharynx without exudates, erythema, or tonsillar enlargement. Uvula midline. NECK: Supple. Nontender. No lymphadenopathy. CHEST: CTAB. No r/r/w. No accessory muscle use. Breathing comfortably and in no distress. CV: RRR. Without m/r/g. Pulses intact. NEURO: Alert. PSYCH: Age appropriate behavior. Triage Information Reviewed: Yes Vital Signs: Vital Signs: Temp Pulse Resp BP Pulse Ox 98.5 F 88 17 126/77 98 03/03/18 17:57 03/03/18 17:57 03/03/18 17:57 03/03/18 17:57 03/03/18 17:57 Vital Signs Reviewed: Yes Throat Pain/Nasal Course/Dx - Course Course Of Treatment: Right otitis externa - Differential Dx/Diagnosis Provider Diagnoses: Right otitis externa Discharge - Sign-Out/Discharge Documenting (check all that apply): Patient Departure All imaging exams completed and their final reports reviewed: No Studies - Discharge Plan Condition: Stable Disposition: HOME Prescriptions: Neomyc/Polym/HC 1% OTIC SUSP* [Cortisporin Otic Susp 1%*] 4 drop RIGHT EAR QID # 1 btl Patient Education Materials: Otitis Externa (DC) Referrals: Hector Kulkarni [Primary Care Provider] - Additional Instructions: If you develop a fever, shortness of breath, chest pain, new or worsening symptoms - please call your PCP or go to the ED. - Billing Disposition and Condition Condition: STABLE Disposition: Home
[2018-03-03 18:03] VITALS: BP 126/77
== END 2018-03-03 18:05 | disposition home or self-care (01) ==
LOC: UCCORT 17:08
DX: H60.93 Unspecified otitis externa, bilateral (principal); J30.81 Allergic rhinitis due to animal (cat) (dog) hair and dander; Z88.0 Allergy status to penicillin
CPT/HCPCS: 99212; G0463

== ENCOUNTER 2018-04-10 11:06 | Emergency (ER) | payer MEDICARE, MEDICAID ==
--- OUTSIDE RECORDS SUMMARY | 2018-04-10 11:13 | XMS REPORT ---
:1995 External Reference #:[id number] Author Organization [employer] Address [address] [place] [address] [place] [address] Phone [phone] Care Team Providers Name Role Phone Hector Trevino PA Primary Care Physician Unavailable Payers Type Date Identification Numbers Payment Provider Subscriber Commercial Effective: Policy Number: [id number] [employer] Armando Ching 2017 [employer] PayID: [id number] [address] [address] Attn: [place] [address] [employer]ig[employer] Part B Policy Number: [id number] Medicaid Armando Ching PayID: [id number] [address] [place] [address] Problems Date Description Provider Status Onset: 12/20/2017 [...] Form Strength Qnty SIG Indications Ordering Provider Tabiona 02/03/ Active Tablets 5-325mg 30tabs one tab [...] 2017 Vital Signs Date Vital Result Comment 03/18/2018 Height 73 inches 6'1" Pain Level 2 02/18/2018 Height 73 inches 6'1" Body Temperature [...] [address]: Hernán Villalba MD Acct: [id number] Unit: [id number] AGE: 22 Location: OR Re02/03/18 SEX: M Status: ROLANDO [place] SPEC: [id number] DARIA: 02/03/18- [facility] DR: Hernán Villalba MD REQ: [id number] RECD: 02/03/18 STATUS: LAURA _ ORDERED: Decal, LEVEL 3 FINAL DIAGNOSIS [...] 1552 END OF REPORT DEPARTMENT OF PATHOLOGY, [address] [place] [address] Hector Armas M.D. Director [facility] # [id number] 2 OTHER DISORDERS OF JOINT DISORDERS, RIGHT ELBOW 3 SEE RESULTS BELOW [id number] MED FEM CONDYLE TRANSFUSED 02/03/18 0720 Procedures Date CPT Code Description Status 02/18/2018 56665 Long Arm Splint Application Completed 02/03/2018 31743 Arthroplasty Elbow W/Membrane Completed 02/03/2018 47795 Arthroplasty Elbow W/Membrane Completed 05/05/2014 65916 EKG, Interpretation Only Completed 04/03/2010 12440 Rad Exam; Elbow, Comp Completed 03/02/2010 21006 FX Epicondyle W/O Manipulation Completed Encounters Type Date Location Provider CPT E/M Dx Office Visit 01/03/2018 [facility] [place] [place] [address] M25.821 9:30a [facility] [place] Office Visit 12/20/2017 [facility] [place] [place] [address] M25.821 10:45a [facility] [place] Plan of Care Future Appointment(s):05/20/2018 11:30 am - [facility]
[2018-04-10 11:24] VITALS: BP 148/89
--- NOTE | 2018-04-10 11:29 | UC ---
Throat Pain/Nasal Boris HPI - HPI Summary HPI Summary: 22 yo male presents with sinus pain/pressure/congestion, right ear pain, and sore throat for the last 12 days - getting progressively worse. He was recently seen for right ear otitis externa - says that his ear improved s/p treatment, but is bothering him again. He has not been taking anything OTC for his symptoms. Denies fever, chills, cough. - History of Current Complaint Chief Complaint: UCRespiratory Stated Complaint: SORE THROAT EAR PAIN SINUS ISSUE Time Seen by Provider: 04/10/18 11:22 Hx Obtained From: Patient Onset/Duration: Gradual Onset Severity: Mild Pain Intensity: 4 Pain Scale Used: 0-10 Numeric - Allergies/Home Medications Allergies/Adverse Reactions: Allergies Allergy/AdvReac Type Severity Reaction Status Date / Time Penicillins Allergy Intermediate Rash Verified 04/10/18 11:21 cats, dogs, horse, hayfever Allergy Unknown Uncoded 04/10/18 11:21 Reaction Details PMH/Surg Hx/FS Hx/Imm Hx Psychological History: Anxiety, Bipolar Disorder Other History Of: Negative For: HIV, Hepatitis B, Hepatitis C, Anticoagulant Therapy - Surgical History Surgical History: Yes Surgery Procedure, Year, and Place: Sinus surgery 2013, polyps removed. Septum straightened. right elbow bone graft 02/03 - Family History Known Family History: Positive: Cardiac Disease, Hypertension - mom/dad, Diabetes - dad - Social History Lives: With Family Alcohol Use: Rare Substance Use Type: None Smoking Status (MU): Never Smoked Tobacco Have You Smoked in the Last Year: No - Immunization History Most Recent Influenza Vaccination: no Most Recent Tetanus Shot: PT DOES NOT KNOW Hx Tetanus, Diphtheria Vaccination: Yes Vaccination Up to Date: Yes Review of Systems All Other Systems Reviewed And Are Negative: Yes Constitutional: Positive: Negative Skin: Positive: Negative Eyes: Positive: Negative ENT: Positive: Sore Throat, Ear Ache, Nasal Discharge, Sinus Congestion, Sinus Pain/Tenderness Respiratory: Positive: Negative Cardiovascular: Positive: Negative Gastrointestinal: Positive: Negative Neurovascular: Positive: Negative Neurological: Positive: Negative Psychological: Positive: Negative Physical Exam - Summary Physical Exam Summary: GENERAL: NAD. WDWN. No pain distress. SKIN: No rashes, sores, lesions, or open wounds. HEENT: Head: AT/NC Eyes: EOM intact. Conjunctiva clear without inflammation or discharge. Ears: Hearing grossly normal. TMs intact, no bulging, erythema, or edema. Nose: Nasal mucosa mildly swollen and erythematous with yellow/ clear discharge. TTP frontal sinus. Positive post nasal drip Throat: Posterior oropharynx with mild erythema. No exudates or tonsillar enlargement. Uvula midline. NECK: Supple. Nontender. No lymphadenopathy. CHEST: CTAB. No r/r/w. No accessory muscle use. Breathing comfortably and in no distress. CV: RRR. Without m/r/g. Pulses intact. NEURO: Alert. PSYCH: Age appropriate behavior. Triage Information Reviewed: Yes Vital Signs: Initial Vital Signs Temp 97.7 F 04/10/18 11:16 Pulse 77 04/10/18 11:16 Resp 16 04/10/18 11:16 BP 148/89 04/10/18 11:16 Pulse Ox 97 04/10/18 11:16 Vital Signs Reviewed: Yes Throat Pain/Nasal Course/Dx - Course Course Of Treatment: Sinusitis. Pharyngitis. Given that he was recently treated with doxycycline and says that azithroymcin "does not work for him" will treat with cefdinir. - Differential Dx/Diagnosis Provider Diagnosis: Sinusitis, Pharyngitis Discharge - Sign-Out/Discharge Documenting (check all that apply): Patient Departure All imaging exams completed and their final reports reviewed: No Studies - Discharge Plan Condition: Stable Disposition: HOME Prescriptions: Cefdinir [Cefdinir 300 MG CAP] 300 mg PO BID #14 cap Patient Education Materials: Pharyngitis (ED), Sinusitis (ED) Referrals: Uriel SHELTON,Hector Pierce [Primary Care Provider] - Additional Instructions: If you develop a fever, shortness of breath, chest pain, new or worsening symptoms - please call your PCP or go to the ED. Your blood pressure was high at todays visit. Please see your primary provider within 4 weeks for recheck and re-evaluation. - Billing Disposition and Condition Condition: STABLE Disposition: Home
== END 2018-04-10 11:33 | disposition home or self-care (01) ==
LOC: UCEAST 11:06
DX: J32.9 Chronic sinusitis, unspecified (principal); J02.9 Acute pharyngitis, unspecified; Z88.0 Allergy status to penicillin
CPT/HCPCS: 99212; G0463

== ENCOUNTER 2018-06-02 13:04 | Emergency (ER) | payer MEDICARE, MEDICAID ==
--- OUTSIDE RECORDS SUMMARY | 2018-06-02 13:22 | XMS REPORT | Continuity of Care Document ---
:1995 External Reference #:[id number] Author Name Gabrielle Brasher Care Team Providers Name Role Phone Hector Trevino PA Primary Care Physician Unavailable Payers Type Date Identification Numbers Payment Provider Subscriber Effective: Policy Number: [id number] [employer] Armando Ching 2017 [employer] PayID: [id number] [address] [address] Attn: [place] [address] Policy Number: [id number] Medicaid Armando Ching PayID: [id number] [address] [place] [address] Advance Directives Description No Information Available Problems Date Description Provider Status Onset: 12/20/2017 Other specified joint disorders, right Hernán Villalba MD Active elbow Family History Date Family Member(s) Problem(s) Comments General Hypertension General Cancer General Depression General Diabetes General Rheumatoid Arthritis Social History Type Date Description Comments Sex Unknown Marital Status Single Lives With Family Occupation Currently Working ETOH Use Rarely consumes alcohol Recreational Drug Use Denies Drug Use Tobacco Use Start: Unknown Patient has never smoked Smoking Status Reviewed: 05/20/18 Patient has never smoked Exercise Type/Frequency Exercises rarely Allergies, Adverse Reactions, Alerts Date Description Reaction Status Severity Comments 12/20/2017 Penicillins Active Medications Medication Date Status Form Strength Qnty SIG Indications Ordering Provider Levothyroxine 07/03/ Active Tablets 75mcg Every Day Unknown Sodium 2015 Melatonin 06/28/ Active Tablets 3mg 30tabs 2 [...] affected ears twice daily for 7 days [place] 02/03/ Hx Tablets 5-325mg 30tabs one tab Hernán 2018 - by mouth Villalba, 05/19/ every 4-6 MD 2019 hours as needed pain Motrin 01/31/ Hx Tablets 600mg 30tabs Q8H Unknown Repack 2015 - 2017 Excedrin 10/10/ Hx Tablets 250-250-65 Once Unknown Migraine 2016 - mg 2017 Zoloft 06/28/ Hx Tablets 100mg Bedtime Unknown 2013 - 2017 Immunizations Description No Information Available Vital Signs Date Vital Result Comment 05/20/2018 8:08am Height 73 inches 6'1" Heart Rate 82 /min BP Systolic 122 mmHg BP Diastolic 82 mmHg Respiratory Rate 18 /min Pain Level 4 03/18/2018 12:11pm Height 73 inches 6'1" Pain Level 2 02/18/2018 11:41am Height 73 inches 6'1" Body Temperature 98.6 F 01/03/2018 9:07am Height 73 inches 6'1" Weight 255.00 lb BP Systolic Sitting 112 mmHg BP Diastolic Sitting 68 mmHg Respiratory Rate 16 /min Pain Level 3 ocking and popping more often BMI (Body Mass Index) 33.6 kg/m2 12/20/2017 11:21am Height 73 inches 6'1" Weight 255.00 lb BP Systolic Sitting 126 mmHg BP Diastolic Sitting 66 mmHg Respiratory Rate 16 /min Pain Level 4 BMI (Body Mass Index) 33.6 kg/m2 02/01/2016 12:00am Height 73 inches Weight 240.00 lb Heart Rate 72 /min BP Systolic 125 mmHg BP Diastolic 83 mmHg Respiratory Rate 16 /min Body Temperature 98.2 F O2 % BldC Oximetry 100 % Height Percentile 89 % Weight Percentile >97th Results Test Date Facility Test Result H/L Range Note Laboratory test 02/03/2018 [facility] Surgical SEE RESULT [address] [place] [address] [phone] Laboratory test 02/02/2018 [facility] Med Fem Condyle SEE RESULTS 2, [address] [place] <[place] [address] NOTE> [phone] 1 SEE RESULT BELOW Name: ARMANDO CHING : [address]: Hernán Villalba MD Acct: [id number] Unit: [id number] AGE: 22 Location: OR Re02/03/18 SEX: M Status: ROLANDO [facility] SPEC: [id number] DARIA: 02/03/18- [facility] DR: Hernán Villalba MD REQ: [id number] RECD: 02/03/18 STATUS: LAURA _ ORDERED: Rajinder, LEVEL 3 FINAL DIAGNOSIS Right elbow, capsular [...] 1552 END OF REPORT DEPARTMENT OF PATHOLOGY, [address] [place] [address] Hector Armas M.D. Director [facility] # [id number] 2 OTHER DISORDERS OF JOINT DISORDERS, RIGHT ELBOW 3 SEE RESULTS BELOW [id number] MED FEM CONDYLE TRANSFUSED 02/03/18 0720 Procedures Date Code Description Status 02/18/2018 62447 Long Arm Splint Application Completed 02/03/2018 62676 Arthroplasty Elbow W/Membrane Completed 02/03/2018 14313 Arthroplasty Elbow W/Membrane Completed 05/05/2014 19416 EKG, Interpretation Only Completed 04/03/2010 19356 Rad Exam; Elbow, Comp Completed 03/02/2010 28503 FX Epicondyle W/O Manipulation Completed Encounters Type Date Location Provider Dx Diagnosis Office Visit 01/03/2018 [facility] Hernán Villalba, M25.821 Other specified 9:30a [facility] [place] [facility] right elbow Office Visit 12/20/2017 [facility]opedic Hernán Villalba M25.821 Other specified 10:45a [facility] right elbow Plan of Treatment Future Appointment(s):08/26/2018 8:00 am - [facility] - Hernán Villalba MDM25.821 Other specified joint disorders, right elbowNew Xrays:Elbow Right 3+ VWS, Ordered: 05/20/18Follow up: Follow up: 3 months
[2018-06-02 13:27] VITALS: BP 140/82
--- NOTE | 2018-06-02 13:49 | UC ---
Throat Pain/Nasal Boris HPI - HPI Summary HPI Summary: 23-year-old male comes to clinic today with a chief complaint of 10 days of upper respiratory tract infection symptoms. Scattered yellow-green rhinorrhea. Discussed sinus pressure. Right ear hurts. No cough or chest congestion. Patient is not a swimmer. Pushing on the outer aspect of the ear makes the ear pain worse. - History of Current Complaint Chief Complaint: UCEar Stated Complaint: RIGHT EAR ACHE Time Seen by Provider: 06/02/18 13:37 Pain Intensity: 5 - Allergies/Home Medications Allergies/Adverse Reactions: Allergies Allergy/AdvReac Type Severity Reaction Status Date / Time Penicillins Allergy Intermediate Rash Verified 06/02/18 13:23 cats, dogs, horse, hayfever Allergy Unknown Uncoded 06/02/18 13:23 Reaction Details Home Medications: Home Medications Levothyroxine TAB* [Synthroid TAB*] 75 mcg PO BEDTIME 06/02/18 [History Confirmed 06/02/18] PMH/Surg Hx/FS Hx/Imm Hx Previously Healthy: Yes Endocrine History: Hypothyroidism Other History Of: Negative For: HIV, Hepatitis B, Hepatitis C, Anticoagulant Therapy - Surgical History Surgical History: Yes Surgery Procedure, Year, and Place: Sinus surgery 2013, polyps removed. Septum straightened. right elbow bone graft 02/03 - Family History Known Family History: Positive: Cardiac Disease, Hypertension - mom/dad, Diabetes - dad - Social History Alcohol Use: Rare Substance Use Type: None Smoking Status (MU): Never Smoked Tobacco Have You Smoked in the Last Year: No - Immunization History Most Recent Influenza Vaccination: no Most Recent Tetanus Shot: PT DOES NOT KNOW Hx Tetanus, Diphtheria Vaccination: Yes Vaccination Up to Date: Yes Review of Systems All Other Systems Reviewed And Are Negative: Yes Constitutional: Positive: Negative Skin: Positive: Negative Eyes: Positive: Negative ENT: Positive: Sore Throat, Ear Ache, Nasal Discharge, Sinus Congestion, Sinus Pain/Tenderness Respiratory: Positive: Negative Cardiovascular: Positive: Negative Gastrointestinal: Positive: Negative Motor: Positive: Negative Neurovascular: Positive: Negative Musculoskeletal: Positive: Negative Neurological: Positive: Negative Psychological: Positive: Negative Is Patient Immunocompromised?: No Physical Exam Triage Information Reviewed: Yes Appearance: No Pain Distress, Well-Nourished, Ill-Appearing - MILD Vital Signs: Initial Vital Signs Temp 97.8 F 06/02/18 13:24 Pulse 88 06/02/18 13:24 Resp 15 06/02/18 13:24 BP 140/82 06/02/18 13:24 Pulse Ox 100 06/02/18 13:24 Vital Signs Reviewed: Yes Eye Exam: Normal Eyes: Positive: Conjunctiva Clear ENT: Positive: Pharyngeal erythema, Nasal congestion, Nasal drainage, TMs normal , Other - Patient is tender to palpation at the right tragus. There is debris and swelling in the right ear canal. Neck exam: Normal Neck: Positive: Supple Respiratory: Positive: Lungs clear, Normal breath sounds, No respiratory distress Cardiovascular: Positive: RRR Musculoskeletal Exam: Normal Musculoskeletal: Positive: Strength Intact, ROM Intact Neurological Exam: Normal Neurological: Positive: Alert, Muscle Tone Normal Psychological Exam: Normal Psychological: Positive: Age Appropriate Behavior Skin Exam: Normal Throat Pain/Nasal Course/Dx - Differential Dx/Diagnosis Provider Diagnosis: Sinusitis, Otitis externa Discharge - Sign-Out/Discharge Documenting (check all that apply): Patient Departure All imaging exams completed and their final reports reviewed: No Studies - Discharge Plan Condition: Stable Disposition: HOME Prescriptions: DOXYcycline CAP(*) [DOXYcycline 100MG CAP(*)] 100 mg PO BID #20 cap Ofloxacin 0.3% (Ear Drop)* [Floxin 0.3% OTIC.ANILA (Ear Drop)] 5 drop RIGHT EAR BID #1 btl Patient Education Materials: Sinusitis (ED), Otitis Externa (ED) Referrals: Uriel SHELTON,Hector Pierce [Primary Care Provider] - Additional Instructions: FOLLOW UP WITH YOUR DOCTOR IF NOT COMPLETELY IMPROVED. GET RECHECKED FOR ANY WORSENING OF YOUR CONDITION OR QUESTIONS OR CONCERNS. - Billing Disposition and Condition Condition: STABLE Disposition: Home
== END 2018-06-02 13:56 | disposition home or self-care (01) ==
LOC: UCCORT 13:04
DX: J32.9 Chronic sinusitis, unspecified (principal); H60.91 Unspecified otitis externa, right ear; E03.9 Hypothyroidism, unspecified; Z88.0 Allergy status to penicillin; Z91.09 Other allergy status, other than to drugs and biological substances; Z79.899 Other long term (current) drug therapy; Z98.890 Other specified postprocedural states
CPT/HCPCS: 99212; G0463

== ENCOUNTER 2018-09-19 10:52 | Emergency (ER) | payer MEDICARE, MEDICAID ==
[2018-09-19 11:39] VITALS: BP 146/86
--- NOTE | 2018-09-19 12:04 | UC ---
UC General HPI - HPI Summary HPI Summary: RN notes - sore throat, chest pain with cough, german, ears feel clogged and painful. this started 2 weeks ago. states it has gotten worse over the past week. 23 yo gentleman c/o progressively worse sinus, ear congestion, scratchy throat over the last 1 1/2 weeks. No fever / chills. + mild cough. No sob / cp / palpitations. No v/d. But some queezy GI. No rash. Po ok. - History of Current Complaint Chief Complaint: UCRespiratory Stated Complaint: UPPER RESP COMPLAINT Time Seen by Provider: 09/19/18 12:03 Hx Obtained From: Patient Pain Intensity: 3 - Allergy/Home Medications Allergies/Adverse Reactions: Allergies Allergy/AdvReac Type Severity Reaction Status Date / Time Penicillins Allergy Intermediate Rash Verified 09/19/18 11:40 cats, dogs, horse, hayfever Allergy Unknown Uncoded 09/19/18 11:40 Reaction Details Home Medications: Home Medications Fluticasone Propionate [Flonase Allergy Relief] 50 mcg NA 09/19/18 [History] PMH/Surg Hx/FS Hx/Imm Hx Previously Healthy: Yes Other History Of: Negative For: HIV, Hepatitis B, Hepatitis C, Anticoagulant Therapy - Surgical History Surgical History: Yes Surgery Procedure, Year, and Place: Sinus surgery 2013, polyps removed, Septum straightened; right elbow bone graft 02/03/18; - Family History Known Family History: Positive: Cardiac Disease, Hypertension - mom/dad, Diabetes - dad - Social History Alcohol Use: Occasionally Substance Use Type: None Smoking Status (MU): Never Smoked Tobacco Have You Smoked in the Last Year: No - Immunization History Most Recent Influenza Vaccination: no Most Recent Tetanus Shot: PT DOES NOT KNOW Hx Tetanus, Diphtheria Vaccination: Yes Vaccination Up to Date: Yes Review of Systems All Other Systems Reviewed And Are Negative: Yes Constitutional: Positive: Other - see hpi Skin: Positive: Other - see hpi Eyes: Positive: Other - see hpi ENT: Positive: Other - see hpi Respiratory: Positive: Other - see hpi Cardiovascular: Positive: Other - see hpi Gastrointestinal: Positive: Other - see hpi Genitourinary: Positive: Other - see hpi Motor: Positive: Other - see hpi Neurovascular: Positive: Other - see hpi Musculoskeletal: Positive: Other: - see hpi Neurological: Positive: Other - see hpi Psychological: Positive: Negative Is Patient Immunocompromised?: No Physical Exam Triage Information Reviewed: Yes Appearance: Well-Appearing, Well-Nourished Vital Signs: Initial Vital Signs Temp 98.3 F 09/19/18 11:35 Pulse 90 09/19/18 11:35 Resp 18 09/19/18 11:35 BP 146/86 09/19/18 11:35 Pulse Ox 99 09/19/18 11:35 Vital Signs Reviewed: Yes Eye Exam: Normal - eyelids a little puffy ENT: Positive: Pharyngeal erythema - + post pharynx redness, no sores / exudates , uvula midline, Nasal congestion, Nasal drainage, TM dull - TM dull, robles au, Sinus tenderness Neck exam: Normal Neck: Positive: Supple, Nontender, No Lymphadenopathy Respiratory Exam: Other - mild cough Respiratory: Positive: Chest non-tender, Lungs clear, Normal breath sounds, No respiratory distress, No accessory muscle use Cardiovascular Exam: Normal Cardiovascular: Positive: RRR, Pulses Normal, Brisk Capillary Refill Abdominal Exam: Normal Abdomen Description: Positive: Nontender Musculoskeletal Exam: Normal - gait steady, moves x 4 ext's Neurological Exam: Normal - grossly nonfocal, slight speech impediment Psychological Exam: Normal - conversing easily and appropriately. nad. Skin Exam: Normal - no visible or reported rash. nondiaphoretic. Course/Dx - Course Course Of Treatment: bp 146/86 RST - neg Reviewed coa / tx plan. Questions as posed answered to the best of my ability. - Diagnoses Provider Diagnosis: Sinusitis, Bronchitis Discharge - Sign-Out/Discharge Documenting (check all that apply): Patient Departure All imaging exams completed and their final reports reviewed: No Studies - Discharge Plan Condition: Stable Disposition: HOME Patient Education Materials: Sinusitis (ED), Acute Bronchitis (ED) Forms: *Work Release Referrals: Hector Trevino PA [Primary Care Provider] - Additional Instructions: Follow up with your primary care physician, per routine. Seek medical attention for worse or new problems in the meantime. Hydrate. Blood prezsure 146/86. Have your doctor recheck this in the next month. Avoid "Decongestant" - Billing Disposition and Condition Condition: STABLE Disposition: Home
== END 2018-09-19 13:08 | disposition home or self-care (01) ==
LOC: UCCORT 10:52
DX: J40 Bronchitis, not specified as acute or chronic (principal); J32.9 Chronic sinusitis, unspecified; J02.9 Acute pharyngitis, unspecified; H92.03 Otalgia, bilateral; Z88.0 Allergy status to penicillin; Z91.09 Other allergy status, other than to drugs and biological substances
CPT/HCPCS: 87651; 99212; G0463

== ENCOUNTER 2018-11-03 07:10 | Day surgery (SDC) | payer MEDICARE, MEDICAID ==
[~2018-11-03 07:10] MED LIST changes: -Buffered Lidocaine 0.9% SYRIN* 5 ML/SYR SYRINGE INTRADERM ONE; +Buffered Lidocaine 1% SYRIN* 1 ML/SYRINGE INTRADERM ONE; +Dexamethasone IV* 4 MG/ML 1 ML (4 MG) IV SLOW PU ONE; +Famotidine TAB* 20 MG PO ONE; +Lactated Ringers 1000 ML Bag* 1,000 ML IV SCH; -Sodium Citrate/Citric Acid* 15 ML UDC PO ONE
[2018-11-03] MEDS ORDERED: Clindamycin 900 MG IVPREMIX(* 900 MG/50 ML SDV IV ONE (07:23)
[2018-11-03] MEDS ORDERED: Dexamethasone IV* 4 MG/ML 1 ML (4 MG) ONE (07:23)
[2018-11-03] MEDS ORDERED: Famotidine TAB* 20 MG ONE (07:23)
[2018-11-03] MEDS ORDERED: Propofol* 10 MG/ML 20 ML BTL ONE (08:14)
[2018-11-03] MEDS ORDERED: Succinylcholine* 20 MG/ML 10 ML VIAL ONE (08:14)
[2018-11-03] MEDS ORDERED: Lidocaine 2% PF * 5 ML VIAL ONE (08:17)
[2018-11-03] MEDS ORDERED: fentaNYL* 50 MCG/ML 5 ML VIAL (250 MCG VIAL) ONE (08:18)
[2018-11-03] MEDS ORDERED: Midazolam* 1 MG/ML 2 ML VIAL (2 MG) ONE (08:18)
[2018-11-03] MEDS ORDERED: Rocuronium* 10 MG/ML VIAL ONE (08:18)
[2018-11-03] MEDS ORDERED: EPHEDrine (Pressors)* 50 MG/ML VIAL ONE (08:31)
[2018-11-03] MEDS ORDERED: Ketorolac INJ* 30 MG/ML 1 ML VIAL IV PRN (09:32)
[2018-11-03] MEDS ORDERED: Naloxone* 0.4 MG/ML 1 ML VIAL IV PRN (09:32)
[2018-11-03] MEDS ORDERED: fentaNYL* 50 MCG/ML 2 ML VIAL (100 MCG VIAL) IV PRN (09:32)
[2018-11-03] MEDS ORDERED: Acetaminophen IV 1GM/100ML * 1,000 MG/100 ML VIAL IVPB ONE (09:32)
[2018-11-03] MEDS ORDERED: DiMENhydriNATE IV* 50 MG/ML VIAL IV PUSH PRN (09:32)
[2018-11-03] MEDS ORDERED: oxyCODONE TAB* 5 MG TAB PO PRN (09:32)
[2018-11-03] MEDS ORDERED: Bupivacaine 0.25% SDV PF* 10 ML VIAL INJ ONE (09:57)
[2018-11-03] MEDS ORDERED: Ondansetron INJ* 2 MG/ML VIAL ONE (11:25)
[2018-11-03] MEDS ORDERED: HYDROmorphone INJ1* 1 MG/ML SYRINGE ONE (11:58)
[2018-11-03] MEDS: HYDROmorphone INJ1* 1 MG/ML SYRINGE IV PRN ×2 (11:59→12:10)
[2018-11-03] MEDS ORDERED: Ketorolac INJ* 30 MG/ML 1 ML VIAL ONE (12:24)
[2018-11-03] MEDS ORDERED: Acetaminophen IV 1GM/100ML * 100 ML ONE (12:25)
[2018-11-03 13:19] VITALS: BP 134/80
--- NOTE | 2018-11-03 13:38 | OP ---
DATE OF OPERATION: 11/03/18 - [facility] DATE OF : [birth year] SURGEON: Hernán Villalba MD. PROGRAM SUPPORT SPECIALIST: YARA Garza. An miller head assistant wet process was needed for the procedure to aid in positioning of the arm and retraction. ANESTHESIOLOGIST: Dr. De Dios. ANESTHESIA: General. 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 POST-OP DIAGNOSES: 1. 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 2. Right capitellar lateral osteochondral loose body fragment. OPERATIVE PROCEDURES: 1. Diagnostic right elbow arthroscopy with debridement. 2. Open right elbow arthrotomy for removal of loose body. INDICATIONS: Armando had the allograft placed about 8 or 9 months ago. It initially did very well for about 4 months and then he developed some recurrent locking and catching in the elbow and this has been increasing. I had obtained x- rays, MRIs, CT scan. It looked like he had a little overlying rim of lateral bone, but he had pretty reasonable incorporation of the graft. I told him I would have the osteochondral autograft harvesting equipment available and we may potentially go to the knee if I opened up the joint and the graft did not look good; however, I was concerned about that lateral rim of bone and the fact that it might be causing the locking and catching, so he understands there is a risk of persistent pain and discomfort in the elbow despite doing surgery. ESTIMATED BLOOD LOSS: 5 mL. COMPLICATIONS: None. FINDINGS: See above and below. DESCRIPTION OF PROCEDURE: Armando was seen in the preoperative holding area. The correct site, side, and procedure were identified. We came back to the operating room, where the arm was prepped and draped in the usual fashion and a time-out was performed. The patient was positioned supine with an armboard parallel to the OR table with just the shoulder hanging off the edge of that armboard and the elbow flexed to 90 degrees and suspended. After we prepped and draped the arm and had a time-out, the arm was exsanguinated with the Esmarch and the tourniquet was inflated to 250 mmHg. I first developed a proximal anteromedial elbow arthroscopy portal in standard fashion. A #15 blade followed by the snap and then the joint was cannulated with the obturator. The camera was placed. I developed a proximal anterolateral portal and the shaver was placed there. Great care was taken not to injure any of the neurovascular structures. The anterior joint compartment was visualized. The gutters were visualized. I did not see any obvious loose body there. It was difficult to see posteriorly. I knew we would see that posterior section when we opened the joint, so I did not worry about scoping that, but I did debride out the anterior joint and made sure there were no loose bodies in the gutters. After the diagnostic arthroscopy and debridement was done, I went ahead and reopened his prior longitudinal incision over the anconeus muscle with the elbow fully flexed. Dissection was carried down and the prior incision through the anconeus muscle was followed. The arthrotomy was again made. All the arthroscopic and joint fluid was suctioned out. There was quite a bit of synovial fluid in the posterior compartment; that was suctioned out. Self- retainer was placed for visualization. After we had the visualization, it became immediately obvious that there was an osteochondral loose fragment that was scarred in, but mobile. I could go back and forth a few millimeters right on that lateral rim of bone. The graft itself looked well incorporated and there was a nice cartilaginous cap and some fibrocartilage. I think the biggest problem was this 4 mm loose component that I am sure was catching every time he extended the elbow. It was definitely sitting prominent from the remainder of the joint line and very loose. I went ahead and excised this out sharply. After I had excised it out, I took the elbow through a full range of motion. I could not induce any catching or popping. The graft looked stable. Nothing else looked like it should be impinging or causing pain or discomfort. Therefore, I irrigated out the wound. The arthrotomy was closed with 2-0 Vicryl suture. The skin was closed with 3-0 Monocryl. The wounds were dressed and a long arm splint was applied, and he was taken to the recovery room in stable condition. [id number]/[facility] #: [id number] PIA
== END 2018-11-03 13:44 | disposition home or self-care (01) ==
LOC: OR 07:10
PROVIDERS: ATTEND Orthopaedic Surgery Hand Surgery
DX: M25.821 Other specified joint disorders, right elbow (principal); M24.021 Loose body in right elbow; E03.9 Hypothyroidism, unspecified; F41.8 Other specified anxiety disorders
CPT/HCPCS: A9270-GY; J0330; J1100; J1170; J1885; J2250; J2405; J2704; J3010; J3490

== ENCOUNTER 2018-12-13 08:22 | Emergency (ER) | payer MEDICARE, MEDICAID ==
--- OUTSIDE RECORDS SUMMARY | 2018-12-13 08:28 | XMS REPORT | Continuity of Care Document ---
:1995 External Reference #:[id number] Author Name Danette Hansen Care Team Providers Name Role Phone Hector Trevino PA Primary Care Physician Unavailable Payers Date Identification Numbers Payment Provider Subscriber Effective: 2017 Policy Number: [id number] [employer] Armando Ching PayID: [id number] [address] [address] Attn: [place] [address] Policy Number: [id number] Medicaid Armando Ching PayID: [id number] [address] [place] [address] Problems Active Problems Provider Date Other specified joint disorders, right elbow Hernán Villalba MD Onset: 2017 Family History Date Family Member(s) Observation Comments General Hypertension General Cancer General Depression General Diabetes General Rheumatoid Arthritis Social History Type Date Description Comments Sex Unknown Marital Status Single Lives With Family Occupation Currently Working ETOH Use Rarely consumes alcohol Recreational Drug Use Denies Drug Use Tobacco Use Start: Unknown Patient has never smoked Smoking Status Reviewed: 12/05/18 Patient has never smoked Exercise Type/Frequency Exercises rarely Allergies, Adverse Reactions, Alerts Active Allergies Reaction Severity Comments Date Penicillins 12/20/2017 Medications Active Medications SIG Qnty Indications Ordering Provider Date Tramadol HCL 1-2 tablets by 30tabs Hernán Villalba, 11/03/2018 50mg Tablets mouth every 6 MD hours as needed pain Levothyroxine Sodium Every Day Unknown 07/03/2014 75mcg Tablets Melatonin 2 by mouth every 30tabs Unknown 06/28/2013 3mg Tablets day Sertraline HCL 1 by mouth every 30tabs Unknown 06/28/2013 125mg day Tablets Risperdal 1 tab by mouth Unknown 06/28/2013 1mg Tablets every day at bedtime Fluticasone Propionate 2 sprays each Unknown nostril qd. 50mcg/Act Suspension Ibuprofen 1 tab by mouth Unknown 600mg Tablets once daily as needed History Medications Spring one tab by mouth 30tabs Hernán Villalba, 02/03/2018 - 5-325mg Tablets every 4-6 hours as 05/19/2018 needed pain Motrin Q8H 30tabs Unknown 02/01/2016 - Repack 12/05/2017 600mg Tablets Excedrin Migraine Once Unknown 10/11/2015 - 12/05/2017 [phone] Tablets Zoloft Bedtime Unknown 06/28/2013 - 100mg Tablets 12/05/2017 Ciprodex instill 4 drops Unknown - 0.3-0.1% into affected ears 09/08/2018 Suspension twice daily for 7 days Vital Signs Date Vital Result Comment 12/05/2018 9:52am Height 73 inches 6'1" Weight 256.00 lb Heart Rate 74 /min BP Systolic Sitting 124 mmHg BP Diastolic Sitting 76 mmHg Respiratory Rate 18 /min Pain Level 0 O2 % BldC Oximetry 98 % BMI (Body Mass Index) 33.8 kg/m2 11/14/2018 9:06am Height 73 inches 6'1" Weight 266.00 lb Heart Rate 79 /min BP Systolic Sitting 118 mmHg BP Diastolic Sitting 82 mmHg Respiratory Rate 18 /min Body Temperature 97.6 F Pain Level 2 O2 % BldC Oximetry 98 % BMI (Body Mass Index) 35.1 kg/m2 10/24/2018 8:28am Height 73 inches 6'1" Weight 266.25 lb Heart Rate 89 /min BP Systolic Sitting 118 mmHg BP Diastolic Sitting 86 mmHg Respiratory Rate 20 /min Pain Level 1 BMI (Body Mass Index) 35.1 kg/m2 09/12/2018 11:19am Height 73 inches 6'1" Weight 254.00 lb Heart Rate 103 /min BP Systolic Sitting 128 mmHg BP Diastolic Sitting 82 mmHg Respiratory Rate 18 /min Pain Level 4 BMI (Body Mass Index) 33.5 kg/m2 08/26/2018 8:01am Height 73 inches 6'1" Heart Rate 71 /min BP Systolic 122 mmHg BP Diastolic 82 mmHg Respiratory Rate 18 /min Body Temperature 98.0 F Pain Level 2 05/20/2018 8:08am Height 73 inches 6'1" Heart [...] Result H/L Range Note Laboratory test 02/03/2018 [facility] Surgical SEE RESULT [address] [place] [address] [phone] Laboratory test 02/02/2018 [facility] Med Fem Condyle SEE RESULTS 2, [address] [place] <[place] [address] NOTE> [phone] 1 SEE RESULT BELOW Name: ARMANDO CHING : [address]: Hernán Villalba MD Acct: [id number] Unit: [id number] AGE: 22 Location: OR Re02/03/18 SEX: M Status: DEP [facility] SPEC: [id number] DARIA: 02/03/18- SUBM DR: Hernán Villalba MD REQ: [id number] RECD: 02/03/18 STATUS: SOUT _ ORDERED: Decal, [...] 1552 END OF REPORT DEPARTMENT OF PATHOLOGY, [address] [place] [address] Hector Armas M.D. Director [facility] # [id number] 2 OTHER DISORDERS OF JOINT DISORDERS, RIGHT ELBOW 3 SEE RESULTS BELOW [id number] MED FEM CONDYLE TRANSFUSED 02/03/18 0720 Procedures Date Code Description Status 11/03/2018 41718 Arthroscopy Elbow Debridement Limited Completed 11/03/2018 52869 Arthroscopy Elbow Debridement Limited Completed 11/03/2018 63868 Arthrotomy Elbow W/Joint Exploration Completed 11/03/2018 70329 Arthrotomy Elbow W/Joint Exploration Completed 02/18/2018 60754 Long Arm Splint Application Completed 02/03/2018 03653 Arthroplasty Elbow W/Membrane Completed 02/03/2018 37309 Arthroplasty Elbow W/Membrane Completed 05/05/2014 30709 EKG, Interpretation Only Completed 04/03/2010 34310 Rad Exam; Elbow, Comp Completed 03/02/2010 19037 FX Epicondyle W/O Manipulation Completed Encounters Type Date Location Provider Dx Diagnosis Office Visit 09/12/2018 Orthopedic Hernán Villalba M25.821 Other specified 11:[facility]a [facility] 08/26/2018 Orthopedic Hernán Villalba, M25.821 Other specified 8:00a [facility] joint disorders, right elbow Office Visit 05/20/2018 Orthopedic Hernán Villalba M25.821 Other specified 8:00a [facility] joint disorders, right elbow Office Visit 01/03/2018 Orthopedic Hernán Villalba M25.821 Other specified 9:30a Services Of Location Man AT joint miguel [place] right elbow Office Visit 12/20/2017 Orthopedic Hernán Villalba M25.821 Other specified 10:45a [facility] of Treatment Future Appointment(s):03/13/2019 9:30 am - Hernán Villalba MD at [facility] [place]/02/2019 - Hernán Villalba MDM25.821 Other specified joint disorders, right elbowFollow up:Follow up: 3 months
[2018-12-13 08:44] VITALS: BP 133/81
--- NOTE | 2018-12-13 08:53 | UC ---
Respiratory Complaint HPI - HPI Summary HPI Summary: 1 wk hx of bilat ear pain, bilat eye discomfort, nasal drainage, and headache. Non productive cough. R toe pain with pus. has had ingrown nail for about 6 mo. Was removed but feels its returning. does not have foot doctor. nothing makes it better/worse. - History of Current Complaint Chief Complaint: UCRespiratory Stated Complaint: URI Time Seen by Provider: 12/13/18 08:43 Hx Obtained From: Patient Pain Intensity: 3 Pain Scale Used: 0-10 Numeric Character: Cough: Nonproductive Aggravating Factors: Nothing Alleviating Factors: Nothing Associated Signs And Symptoms: Positive: URI, Nasal Congestion. Negative: Dyspnea, Fever, Chills - Allergies/Home Medications Allergies/Adverse Reactions: Allergies Allergy/AdvReac Type Severity Reaction Status Date / Time Penicillins Allergy Intermediate Rash Verified 12/13/18 08:44 cats, dogs, horse, hayfever Allergy Unknown Uncoded 12/13/18 08:44 Reaction Details PMH/Surg Hx/FS Hx/Imm Hx Previously Healthy: Yes Other History Of: Negative For: HIV, Hepatitis B, Hepatitis C, Anticoagulant Therapy - Surgical History Surgical History: Yes Surgery Procedure, Year, and Place: Sinus surgery 2013, polyps removed, Septum straightened; [facility]. right elbow bone graft 02/03/18; [facility] [place] - Family History Known Family History: Positive: Cardiac Disease, Hypertension - mom/dad, Diabetes - dad - Social History Alcohol Use: Occasionally Alcohol Amount: socially Substance Use Type: None Smoking Status (MU): Never Smoked Tobacco Have You Smoked in the Last Year: No - Immunization History Most Recent Influenza Vaccination: no Most Recent Tetanus Shot: PT DOES NOT KNOW Hx Tetanus, Diphtheria Vaccination: Yes Vaccination Up to Date: Yes Review of Systems All Other Systems Reviewed And Are Negative: Yes Constitutional: Negative: Fever Skin: Positive: Other - R toe w/ pus at nail. Negative: Rash Eyes: Positive: Other - bilat eye discomfort. Negative: Blurred Vision, Drainage, Eye Redness ENT: Positive: Ear Ache, Nasal Discharge Respiratory: Positive: Negative Cardiovascular: Positive: Negative Genitourinary: Negative: Dysuria Musculoskeletal: Negative: Arthralgia, Myalgia Neurological: Positive: Headache Physical Exam Triage Information Reviewed: Yes Appearance: Well-Appearing Vital Signs: Initial Vital Signs Temp 98.3 F 12/13/18 08:40 Pulse 76 12/13/18 08:40 Resp 18 12/13/18 08:40 BP 133/81 12/13/18 08:40 Pulse Ox 100 12/13/18 08:40 Vital Signs Reviewed: Yes Eyes: Positive: Conjunctiva Clear. Negative: Other: - nonetender lids bilat. ENT: Positive: Pharynx normal, TMs normal, Other - tender papule at opening of L canal Dental: Positive: Other: - POOR DENTITION Neck: Positive: Supple, Nontender, No Lymphadenopathy Respiratory Exam: Normal Cardiovascular Exam: Normal Musculoskeletal: Positive: No Edema - at R toe Neurological: Positive: Alert Skin: Positive: Other - R lateral toenail has draining fluid and mild swelling, nontender.. Negative: Rashes Respiratory Course/Dx - Course Course Of Treatment: 1-L ear: papulue noted on exam, tender. probably causing his ear pain along w/ the congestion. self limiting and advised not to touch. 2-URI: acute, no signs of pneumonia, clear lungs. good vitals; afebrile. comfort measures discussed. 3-Ingrown toenail/R toe: draining on its own but advised to soak his toe in salty warm water often. consider podiatry . no joint involvement. - Differential Dx/Diagnosis Differential Diagnosis/HQI/PQRI: Sinusitis, Other Provider Diagnosis: Ingrown toenail, Papule, URI (upper respiratory infection) Discharge - Sign-Out/Discharge Documenting (check all that apply): Patient Departure All imaging exams completed and their final reports reviewed: No Studies - Discharge Plan Condition: Good Disposition: HOME Patient Education Materials: Ingrown Nail (ED) Referrals: Hector Trevino PA [Primary Care Provider] - Additional Instructions: please follow up with your pcp if not improving. - Billing Disposition and Condition Condition: GOOD Disposition: Home
== END 2018-12-13 09:10 | disposition home or self-care (01) ==
LOC: UCEAST 08:22
DX: R23.8 Other skin changes (principal); J06.9 Acute upper respiratory infection, unspecified; L60.0 Ingrowing nail; Z88.0 Allergy status to penicillin
CPT/HCPCS: 99211; G0463

== ENCOUNTER 2019-01-04 18:10 | Emergency (ER) | payer MEDICARE, MEDICAID ==
--- NOTE | 2019-01-04 18:19 | UC ---
HPI BURN - HPI Summary HPI Summary: Patient is a 23 year old , who present today to the urgent care with a burn injury to his left hand today around 9:30 in the morning. He is taking the bergman out of the oven, now has blisters on the third and the fourth finger and a small blister on the palm of the left hand. He applied cold water and Band-Aid. No drainage. Last tetanus was 6 months ago. - History of Current Complaint Stated Complaint: BURN LEFT HAND Time Seen by Provider: 01/04/19 18:13 Hx Obtained From: Patient - Allergy/Home Medications Allergies/Adverse Reactions: Allergies Allergy/AdvReac Type Severity Reaction Status Date / Time Penicillins Allergy Intermediate Rash Verified 01/04/19 18:19 cats, dogs, horse, hayfever Allergy Unknown Uncoded 01/04/19 18:19 Reaction Details PMH/Surg Hx/FS Hx/Imm Hx - Additional Past Medical History Additional PMH: Past Medical History : hypothyroidism Past Surgical History: Sinus surgery 2013, polyps removed, Septum straightened; [facility] [place] [facility] [place] Family History : non contributory Social History : Occasional alcohol, non smoker, no drug use. Previously Healthy: Yes Other History Of: Negative For: HIV, Hepatitis B, Hepatitis C, Anticoagulant Therapy - Surgical History Surgical History: Yes Surgery Procedure, Year, and Place: Sinus surgery 2013, polyps removed, Septum straightened; [facility]. [place] [facility] [place] Family History Known Family History: Positive: Cardiac Disease, Hypertension - mom/dad, Diabetes - dad, Non-Contributory - Social History Alcohol Use: Occasionally Alcohol Amount: socially Substance Use Type: None Smoking Status (MU): Never Smoked Tobacco Have You Smoked in the Last Year: No - Immunization History Most Recent Influenza Vaccination: no Most Recent Tetanus Shot: PT DOES NOT KNOW Hx Tetanus, Diphtheria Vaccination: Yes Vaccination Up to Date: Yes Review of Systems All Other Systems Reviewed And Are Negative: Yes Constitutional: Positive: Negative Skin: Positive: Other - burn to left hand Eyes: Positive: Negative ENT: Positive: Negative Respiratory: Positive: Negative Cardiovascular: Positive: Negative Gastrointestinal: Positive: Negative Genitourinary: Positive: Negative Motor: Positive: Negative Neurovascular: Positive: Negative Musculoskeletal: Positive: Negative Neurological: Positive: Negative Psychological: Positive: Negative Is Patient Immunocompromised?: No Physical Exam - Summary Physical Exam Summary: Vital Signs Reviewed: Yes A+Ox3, no distress Eyes: Conjunctiva Clear ENT: Hearing grossly normal neck: supple Respiratory: Positive: No respiratory distress, No accessory muscle use Cardiovascular: skin color reflect adequate perfusion Musculoskeletal Exam: REED x 4 without difficulty Neurological: Positive: Alert, ambulatory without difficulty Psychological: Positive: Normal Response To Family Skin: erythema and blister noted on the third and the fourth finger on the radial aspect. There is one blister on the fourth finger measuring about an inch with surrounding erythema. There are 2 blisters on the third finger on the radial aspect along with surrounding erythema measuring about 3 inches long. There is a small blister on the radial aspect of his palm measuring about 1 inch. The blisters are intact without any drainage. Triage Information Reviewed: Yes Vital Signs Reviewed: Yes Burn Calculation - Right Arm 9% Right Arm 1st De - less than 1% - Total 1st Deg Total: 1 Total % BSA: 1 - [place] Formula for Fluid Resuscitation 24 -Hour Fluid Replacement: 0.0 Course/Dx Burn - Course Course Of Treatment: During the visit today, we discussed the findings. Has superficial partial thickness burn of the third and the fourth finger and the palm of the left hand. Dressing was done with Silvadene and nonadhesive gauze. Advised him to do daily dressings, extra supplies were given. Advised him not to pop the blister and avoid wetting the hand. He will follow with his primary care doctor in 2 days Patient expressed understanding . - Diagnoses Provider Diagnosis: Superficial partial thickness burn of digit of hand Discharge ED - Sign-Out/Discharge Documenting (check all that apply): Patient Departure All imaging exams completed and their final reports reviewed: No Studies - Discharge Plan Condition: Stable Disposition: HOME Patient Education Materials: Superficial Burn (DC), Acute Wound Care (ED) Referrals: Hector Trevino PA [Primary Care Provider] - 2 Days Additional Instructions: daily dressings with silvadene and non adhesive dressing. Do not pop the blister and avoid wetting the hand. Pain control as needed with ibuprofen Patients blood pressure slightly high in Urgent care today , plan follow up with PCP for better control Return to Urgent care / ER if symptoms get worse. - Billing Disposition and Condition Condition: STABLE Disposition: Home
[2019-01-04 18:28] VITALS: BP 150/85
[2019-01-04] MEDS ORDERED: Silver Sulfadiazine 1%* 20 GM TOPICAL ONE (18:32)
== END 2019-01-04 19:03 | disposition home or self-care (01) ==
LOC: UCCORT 18:10
DX: T23.232A Burn of second degree of multiple left fingers (nail), not including thumb, initial encounter (principal); T23.252A Burn of second degree of left palm, initial encounter; T31.0 Burns involving less than 10% of body surface; X15.0XXA Contact with hot stove (kitchen), initial encounter; Y93.G3 Activity, cooking and baking; Y92.9 Unspecified place or not applicable; Z88.0 Allergy status to penicillin
CPT/HCPCS: 16020; 99213; A9270-GY; G0463

== ENCOUNTER 2019-02-16 11:34 | Emergency (ER) | payer MEDICARE, MEDICAID ==
--- NOTE | 2019-02-16 12:33 | UC ---
Dental HPI - HPI Summary HPI Summary: 23 yo male presents with dental pain. He tells me that over the last 3-4 days he has had left upper tooth pain that he was taking ibuprofen for with good relief. Over the last 24 hours has had increased pain and notes swelling to his cheek. He called the dentist and made an appointment, but they cannot see him until next week. He is eating, drinking, and tolerating po well. Denies fever. - History of Current Complaint Chief Complaint: UCDentalProblem Stated Complaint: DENTAL COMPLAINT Time Seen by Provider: 02/16/19 12:33 Hx Obtained From: Patient Onset/Duration: Gradual Onset Severity: Severe Pain Intensity: 10 Pain Scale Used: 0-10 Numeric - Allergies/Home Medications Allergies/Adverse Reactions: Allergies Allergy/AdvReac Type Severity Reaction Status Date / Time Penicillins AdvReac Intermediate Rash Verified 02/16/19 12:07 cats, dogs, horse, hayfever Allergy Unknown Uncoded 02/16/19 12:07 Reaction Details PMH/Surg Hx/FS Hx/Imm Hx - Additional Past Medical History Additional PMH: Intellectual disability Endocrine History: Hypothyroidism Other History Of: Negative For: HIV, Hepatitis B, Hepatitis C, Anticoagulant Therapy - Surgical History Surgical History: Yes Surgery Procedure, Year, and Place: Sinus surgery 2013, polyps removed, Septum straightened[place] [facility]/03[place]18; [facility] [place] - Family History Known Family History: Positive: Cardiac Disease, Hypertension - mom/dad, Diabetes - dad, Non-Contributory - Social History Occupation: Employed Full-time Lives: With Family Alcohol Use: Rare Alcohol Amount: socially Substance Use Type: None Smoking Status (MU): Never Smoked Tobacco Have You Smoked in the Last Year: No - Immunization History Most Recent Influenza Vaccination: no Most Recent Tetanus Shot: PT DOES NOT KNOW Hx Tetanus, Diphtheria Vaccination: Yes Vaccination Up to Date: Yes Review of Systems All Other Systems Reviewed And Are Negative: No Constitutional: Positive: Negative Skin: Positive: Negative Eyes: Positive: Negative ENT: Positive: Dental Pain Respiratory: Positive: Negative Cardiovascular: Positive: Negative Neurological: Positive: Negative Psychological: Positive: Negative Physical Exam - Summary Physical Exam Summary: GENERAL: NAD. WDWN. No pain distress. SKIN: No rashes, sores, lesions, or open wounds. HEENT: Head: AT/NC Eyes: EOM intact. Conjunctiva clear without inflammation or discharge. Ears: Hearing grossly normal. TMs intact, no bulging, erythema, or edema. Nose: Nasal mucosa pink and moist. NTTP maxillary and frontal sinus. Throat: Posterior oropharynx without exudates, erythema, or tonsillar enlargement. Uvula midline. NECK: Supple. Nontender. No lymphadenopathy. CHEST: No accessory muscle use. Breathing comfortably and in no distress. NEURO: Alert. PSYCH: Age appropriate behavior. Triage Information Reviewed: Yes Vital Signs: Initial Vital Signs Temp 97.8 F 02/16/19 12:04 Pulse 68 02/16/19 12:04 Resp 18 02/16/19 12:04 BP 159/109 02/16/19 12:04 Pulse Ox 100 02/16/19 12:04 Vital Signs: Temp Pulse Resp BP Pulse Ox 97.8 F 68 18 134/82 100 02/16/19 12:04 02/16/19 12:04 02/16/19 12:04 02/16/19 12:40 02/16/19 12:04 Vital Signs Reviewed: Yes Dental: Positive: Gross Decay/Caries @ - throughout, Abscess @ - Tooth #14. Negative: Dental Fracture @, Cellulitis @, Cervical Lymphadenopathy, Bleeding Dental Complaint Course/Dx - Course Course Of Treatment: Dental abscess - Differential Dx/Diagnosis Provider Diagnosis: Dental abscess Discharge ED - Sign-Out/Discharge Documenting (check all that apply): Patient Departure All imaging exams completed and their final reports reviewed: No Studies - Discharge Plan Condition: Stable Disposition: HOME Prescriptions: Chlorhexidine MW 0.12% 473ML* [Peridex Mouth Wash 0.12%] 15 ml MT DAILY #1 btl Clindamycin HCl 300 mg PO TID #21 capsule Patient Education Materials: Dental Abscess (ED) Referrals: Hector Trevino PA [Primary Care Provider] - Additional Instructions: If you develop a fever, shortness of breath, chest pain, new or worsening symptoms - please call your PCP or go to the ED immediately. Your blood pressure was high at todays visit. Please see your primary provider within 4 weeks for recheck and re-evaluation. Please keep your dentist appointment for next week for further evaluation of your dental pain - Billing Disposition and Condition Condition: STABLE Disposition: Home - Attestation Statements Provider Attestation: I was available for consult. This patient was seen by the IGLESIA. The patient was not presented to, seen by, or examined by me. -Shilpi
[2019-02-16 12:41] VITALS: BP 134/82
== END 2019-02-16 12:49 | disposition home or self-care (01) ==
LOC: UCCORT 11:34
DX: K04.7 Periapical abscess without sinus (principal); F79 Unspecified intellectual disabilities; Z88.0 Allergy status to penicillin; Z91.09 Other allergy status, other than to drugs and biological substances
CPT/HCPCS: 99212; G0463

== ENCOUNTER 2019-02-25 14:22 | Emergency (ER) | payer MEDICARE, MEDICAID ==
[2019-02-25 15:01] VITALS: BP 126/85
--- NOTE | 2019-02-25 15:53 | ED ---
GI/ HPI - HPI Summary HPI Summary: 23 yr old male with the complaint of suprapubic pressure, increased frequency of urination and some dysuria. The patient had onset of symptoms about four days ago. He states he had a UTI years ago and this feels similar. The patient has never been sexually active in his life. No discharge or penile pain. No other complaints. - History of Current Complaint Chief Complaint: UCGU Time Seen by Provider: 02/25/19 15:42 Stated Complaint: URINARY COMPLAINT Pain Intensity: 5 - Allergy/Home Medications Allergies/Adverse Reactions: Allergies Allergy/AdvReac Type Severity Reaction Status Date / Time Penicillins AdvReac Intermediate Rash Verified 02/16/19 12:07 cats, dogs, horse, hayfever Allergy Unknown Uncoded 02/16/19 12:07 Reaction Details PMH/Surg Hx/FS Hx/Imm Hx Endocrine/Hematology History: Reports: Hx Thyroid Disease - hypo Denies: Hx Anticoagulant Therapy, Hx Diabetes Cardiovascular History: Denies: Hx Congestive Heart Failure, Hx Deep Vein Thrombosis, Hx Hypertension , Hx Myocardial Infarction, Hx Pacemaker/ICD, Other Cardiovascular Problems/ Disorders Respiratory History: Reports: Hx Sleep Apnea - ?POSSIBLY BUT NOT DIAGNOSED, Other Respiratory Problems/Disorders - hx upper resp infection 2 months ago Denies: Hx Asthma, Hx Chronic Obstructive Pulmonary Disease (COPD), Hx Lung Cancer, Hx Pneumonia, Hx Pulmonary Embolism GI History: Reports: Hx Gastroesophageal Reflux Disease, Hx Hiatal Hernia Denies: Hx Gall Bladder Disease, Hx Gastrointestinal Bleed, Hx Ulcer, Hx Urosepsis History: Denies: Hx Kidney Stones, Hx Renal Disease Musculoskeletal History: Denies: Other Musculoskeletal History Sensory History: Denies: Hx Contacts or Glasses, Hx Hearing Aid Opthamlomology History: Denies: Hx Contacts or Glasses Neurological History: Reports: Hx Migraine - HX OF IN THE PAST-RARELY Denies: Hx Dementia, Hx Seizures, Hx Transient Ischemic Attacks (TIA), Other Neuro Impairments/Disorders Psychiatric History: Reports: Hx Anxiety - on med, Hx Depression - on med Denies: Hx Eating Disorder, Hx Panic Disorder, Hx Schizophrenia, Hx Bipolar Disorder, Hx of Violent Episodes Against Others - Surgical History Surgery Procedure, Year, and Place: Sinus surgery 2013, polyps removed, Septum straightened; [facility]. right elbow bone graft 02/03/18; [facility] [place] Hx Anesthesia Reactions: No Infectious Disease History: No Infectious Disease History: Denies: Hx Clostridium Difficile, Hx Hepatitis, Hx Human Immunodeficiency Virus (HIV), Hx of Known/Suspected MRSA, Hx Shingles, Traveled Outside the [place] in Last 30 Days - Family History Known Family History: Positive: Cardiac Disease, Hypertension - mom/dad, Diabetes - dad, Non-Contributory - Social History Alcohol Use: Rare Alcohol Amount: socially Substance Use Type: Reports: None Smoking Status (MU): Never Smoked Tobacco Have You Smoked in the Last Year: No Review of Systems Constitutional: Negative Positive: dysuria, frequency All Other Systems Reviewed And Are Negative: Yes Physical Exam Triage Information Reviewed: Yes Vital Signs On Initial Exam: Initial Vitals Temp Pulse Resp BP Pulse Ox 98 F 75 16 126/85 5 02/25/19 14:55 02/25/19 14:55 02/25/19 14:55 02/25/19 14:55 02/25/19 14:55 Vital Signs Reviewed: Yes Appearance: Positive: Well-Appearing, No Pain Distress Skin: Positive: Warm, Skin Color Reflects Adequate Perfusion Head/Face: Positive: Normal Head/Face Inspection Eyes: Positive: EOMI ENT: Positive: Normal ENT inspection, Nasal congestion Neck: Positive: Nontender Respiratory/Lung Sounds: Positive: Clear to Auscultation, Breath Sounds Present Cardiovascular: Positive: RRR. Negative: Murmur Abdomen Description: Positive: Nontender. Negative: CVA Tenderness (R), CVA Tenderness (L) Male Genital Exam: Positive: Normal Genitalia, No Hernia. Negative: Scrotum Tenderness (R), Scrotum Tenderness (L), Testicular Tenderness (R), Testicular Tenderness (L), Urethral Discharge Musculoskeletal: Positive: Strength/ROM Intact Neurological: Positive: Sensory/Motor Intact, Alert, Oriented to Person Place, Time, CN Intact II-III, Normal Gait, Speech Normal Psychiatric: Positive: Normal Diagnostics - Vital Signs Vital Signs Temp Pulse Resp BP Pulse Ox 02/25/19 14:55 98 F 75 16 126/85 5 - Laboratory Lab Results: Lab Results 02/25/19 Range/Units 15:11 POC Urine Color Yellow POC Urine Clarity Clear POC Urine pH 7.5 (5-9) POC Ur Specif [place] 1.015 (1.010-1.030) POC Urine Protein Negative (Negative) POC Ur Glucose (UA) Negative (Negative) POC Urine Ketones Negative (Negative) POC Urine Blood Negative (Negative) POC Urine Nitrite Negative (Negative) POC Urine Bilirubin Negative (Negative) POC Urine Urobilinogen 0.2 (Negative) POC U Leukocyte Esteras Negative (Negative) Lab Statement: Any lab studies that have been ordered have been reviewed, and results considered in the medical decision making process. GIGU Course/Dx - Course Course Of Treatment: 23 yr old male with dysuria, frequency. plan dc home and the patient has a negative UA. FU with primary care doctor. - Diagnoses Provider Diagnoses: Dysuria Discharge ED - Sign-Out/Discharge Documenting (check all that apply): Patient Departure All imaging exams completed and their final reports reviewed: No Studies - Discharge Plan Condition: Good Disposition: HOME Patient Education Materials: Dysuria (ED) Referrals: Hector Trevino PA [Primary Care Provider] - - Billing Disposition and Condition Condition: GOOD Disposition: Home
== END 2019-02-25 16:00 | disposition home or self-care (01) ==
LOC: UCCORT 14:22
DX: R30.0 Dysuria (principal); R35.0 Frequency of micturition; Z91.09 Other allergy status, other than to drugs and biological substances
CPT/HCPCS: 81003; 99211; G0463

== ENCOUNTER 2019-06-14 20:02 | Emergency (ER) | payer MEDICARE, MEDICAID ==
--- OUTSIDE RECORDS SUMMARY | 2019-06-14 20:15 | XMS REPORT ---
:1995 Author Organization [facility] Care Team Providers Name Role Phone ROLAND POLANCO Primary Care Physician Unavailable Allergies, Adverse Reactions, Alerts Allergy Code CodeSystem Reaction Severity Criticality Status Start Substance Date Moderate Medications Medication Medication Medication Start Stop Route Dose Status Fill Code CodeSystem Date Date Instructions sertraline 170016 RxNorm 2019- 2019- oral 100 mg 1 completed Take 1 tablet 7-17 11-14 tablet once a day once a for 30 day(s) day sertraline 562986 RxNorm 2019- oral 50 mg completed Take 1/2 7-17 11-14 1/2 tablet by tablet mouth once a once a day for 30 day day(s) sertraline 383707 RxNorm 2019- oral 100 mg 1 completed Take 1 tablet 07-17 tablet once a day once a for 30 day(s) day risperidone 942951 RxNorm 2019- oral 1 mg 1 completed Take 1 tablet 11-14 tablet at bedtime at for 30 day(s) bedtime sertraline 067665 RxNorm 2019- oral 50 mg completed Take 1/2 07-17 1/2 tablet by tablet mouth once a once a day for 30 day day(s) Problems Problem Name Code CodeSystem Alternate Alternate Start End Status Narrative Code CodeSystem Date Date 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 Disturbance 11251648 SNOMED-CT 2019 Active of activity 3-22 and attention Relevant diagnostic tests/laboratory data Narrative No Information Procedures Procedure Code CodeSystem Target Date of Status Service Device Device Device Name Site Procedure Delivery Code Name UID Location Psychotherap [id number] SNOMED-CT () 2018-11-17 complete Mental y, 46 04 d Health- minutes with [address], [id number] [phone] Psychotherap [id number] SNOMED-CT () 2018-12-15 complete Mental y, 45 04 d Health- minutes with Jennifer patient [address], [id number] [phone] Psychotherap [id number] SNOMED-CT () 2019-01-19 complete Mental y, 45 04 d Health- minutes with Jennifer patient [address], [id number] [phone] Psychotherap [id number] SNOMED-CT () 2019-03-02 complete Mental y, 45 04 d Health- minutes with Jennifer patient [address], [id number] [phone] Psychotherap [id number] SNOMED-CT () 2019-04-13 complete Mental y, 45 04 d Health- minutes with Jennifer patient [address], [id number] [phone] Psychotherap [id number] SNOMED-CT () 2018-08-11 complete Mental y, 46 04 d Health- minutes with [facility] patient [address], [phone] [phone] Psychotherap [id number] SNOMED-CT () 2018-09-01 complete Mental y, 46 04 d Health- minutes with [facility] patient [address], [phone] Psychotherap [id number] SNOMED-CT () 2019-05-18 complete Mental y, 46 04 d Health- minutes with [facility] patient [address], [id number] [phone] Office or [id number] SNOMED-CT () 2018-09-24 complete Mental other 6 d Health- outpatient [facility] visit for [address], established [phone] patient, [phone] which requires at least 2 of these 3 [place] components: A problem focused history; A problem focused examination; [place] medical decision making. Counselin Office or [id number] SNOMED-CT () 2019-04-22 complete Mental other 6 d Health- outpatient Jennifer visit for [address], established [phone] patient, [phone] which requires at least 2 of these 3 [place] components: A problem focused history; A problem focused examination; [place] medical decision making. Counselin Office or [id number] SNOMED-CT () 2018-11-19 complete Mental other 6 d Health- outpatient [facility] visit for [address], of an [facility] established [phone] patient, [phone] which requires at least 2 of these 3 [place] components: A problem focused history; A problem focused examination; [place] medical decision making. [place] SNOMED-CT () 2018-10-10 complete Mental d Health- [address], [id number] [id number] SNOMED-CT () 2018-10-17 [facility] Mental d [address], [phone] Encounters/Encounter Diagnoses Encounter Name Encounter Diagnosis Diagnosis Diagnosis Date of Service Code Code Name CodeSystem Diagnosis Delivery Location [facility] [id number] Disturbance SNOMED-CT 2019-05-18 Behavioral Individual 30 of activity Health [facility] [address] [place] [address], [phone] Vital Signs No Information Social History Element Description Description Start End Code CodeSystem AdditionalInfo Date Date SexAssignedAtBirth Male 1994- M AdministrativeGender 06-16 Hospital Discharge Instructions Reason For Referral Medical Equipment FDA Assessments
--- OUTSIDE RECORDS SUMMARY | 2019-06-14 20:16 | XMS REPORT ---
:1995 Author Organization [facility] Care Team Providers Name Role Phone Palmer Dash Primary Care Physician Unavailable Allergies, Adverse Reactions, Alerts Allergy Code CodeSystem Reaction Severity Criticality Status Start Substance Date Moderate Medications Medication Medication Medication Start Stop Route Dose Status Fill Code CodeSystem Date Date Instructions RxNorm Problems Problem Name Code CodeSystem Alternate Alternate Start End Status Narrative Code CodeSystem Date Date Oppositional 00410025 SNOMED-CT Active defiant 3-27 disorder Disturbance 40025223 SNOMED-CT Active of activity 3-22 and attention Relevant diagnostic tests/laboratory data Narrative No Information Procedures Procedure Code CodeSystem Target Date of Status Service Device Device Device Name Site Procedure Delivery Code Name UID Location Psychotherap [id number] SNOMED-CT () 2018-11-17 complete Mental y, 45 04 d Health- minutes with [address], [phone] [phone] Psychotherap [id number] SNOMED-CT () 2018-12-15 complete Mental y, 45 04 d Health- minutes with [address], [phone] [phone] Psychotherap [id number] SNOMED-CT () 2019-01-19 complete Mental y, 45 04 d Health- minutes with [address], [id number] [phone] Psychotherap [id number] SNOMED-CT () 2019-03-02 complete Mental y, 45 04 d Health- minutes with [address], [phone] [phone] Psychotherap [id number] SNOMED-CT () 2019-04-13 complete Mental y, 45 04 d Health- minutes with [address], [phone] [phone] Psychotherap [id number] SNOMED-CT () 2018-08-11 complete Mental y, 46 04 d Health- minutes with [facility] patient [address], [phone] Psychotherap [id number] SNOMED-CT () 2018-09-01 complete Mental y, 45 04 d Health- minutes with Jennifer patient [address], [phone] Office or [id number] SNOMED-CT () 2018-09-24 complete Mental other 6 d Health- outpatient Jennifer visit for [address], established [phone] patient, [phone] which requires at least 2 of these 3 [place] components: A problem focused history; A problem focused examination; [place] medical decision making. Counselin Office or [id number] SNOMED-CT () 2018-11-19 complete Mental other 6 d Health- outpatient Jennifer visit for [address], established [phone] patient, [phone] which requires at least 2 of these 3 [place] components: A problem focused history; A problem focused examination; [place] medical decision making. Counselin SNOMED-CT () 2018-10-10 complete Mental d Health- [address], [phone] SNOMED-CT () 2018-10-17 complete Mental d Health[address], [id number] [phone] Encounters/Encounter Diagnoses Encounter Name Encounter Diagnosis Diagnosis Diagnosis Date of Service Code Code Name CodeSystem Diagnosis Delivery Location Psychotherapy - [id number] Disturbance SNOMED-CT 2019-04-13 Behavioral Individual 30 of activity [facility] [address] [place] [address], [phone] Vital Signs No Information Social History Element Description Description Start End Code CodeSystem AdditionalInfo Date Date SexAssignedAtBirth Male 1994- M AdministrativeGender 2-11 Hospital Discharge Instructions Reason For Referral Medical Equipment FDA Assessments
[2019-06-14 20:38] VITALS: BP 165/106
--- NOTE | 2019-06-14 20:51 | UC ---
Throat Pain/Nasal Boris HPI - HPI Summary HPI Summary: 24-year-old male comes in with a chief complaint of yellow green rhinorrhea and sinus pressure and ear pain. He's had upper respiratory tract infection symptoms for about a week and a half. He does have a scratchy sore throat. No complaint of any chest congestion. Both ears hurt. - History of Current Complaint Chief Complaint: UCRespiratory Stated Complaint: EAR PAIN, CONGESTION Time Seen by Provider: 06/14/19 20:24 Pain Intensity: 6 - Allergies/Home Medications Allergies/Adverse Reactions: Allergies Allergy/AdvReac Type Severity Reaction Status Date / Time Penicillins AdvReac Intermediate Rash Verified 06/14/19 20:35 cats, dogs, horse, hayfever Allergy Unknown Uncoded 06/14/19 20:35 Reaction Details Home Medications: Home Medications Ibuprofen TAB* [Advil TAB*] 200 mg PO Q6H PRN 06/14/19 [History Confirmed ] PMH/Surg Hx/FS Hx/Imm Hx Previously Healthy: Yes Endocrine History: Hypothyroidism Other History Of: Negative For: HIV, Hepatitis B, Hepatitis C, Anticoagulant Therapy - Surgical History Surgical History: Yes Surgery Procedure, Year, and Place: Sinus surgery 2013, polyps removed, Septum straightened; [facility]. right elbow bone graft 02/03/18; [facility] [place] - Family History Known Family History: Positive: Cardiac Disease, Hypertension - mom/dad, Diabetes - dad, Non-Contributory - Social History Alcohol Use: Rare Alcohol Amount: socially Substance Use Type: None Smoking Status (MU): Never Smoked Tobacco Have You Smoked in the Last Year: No - Immunization History Most Recent Influenza Vaccination: no Most Recent Tetanus Shot: PT DOES NOT KNOW Hx Tetanus, Diphtheria Vaccination: Yes Vaccination Up to Date: Yes Review of Systems All Other Systems Reviewed And Are Negative: Yes Constitutional: Positive: Other - SEE HPI Skin: Positive: Negative Eyes: Positive: Negative ENT: Positive: Sore Throat, Ear Ache, Nasal Discharge, Sinus Congestion, Sinus Pain/Tenderness Respiratory: Positive: Negative Cardiovascular: Positive: Negative Gastrointestinal: Positive: Negative Motor: Positive: Negative Neurovascular: Positive: Negative Musculoskeletal: Positive: Negative Neurological: Positive: Negative Psychological: Positive: Negative Is Patient Immunocompromised?: No Physical Exam Triage Information Reviewed: Yes Appearance: No Pain Distress, Well-Nourished, Ill-Appearing - MILD Vital Signs: Initial Vital Signs Temp 97.9 F 06/14/19 20:36 Pulse 88 06/14/19 20:36 Resp 18 06/14/19 20:36 BP 165/106 06/14/19 20:36 Pulse Ox 99 06/14/19 20:36 Vital Signs Reviewed: Yes Eye Exam: Normal Eyes: Positive: Conjunctiva Clear ENT: Positive: Pharyngeal erythema, Nasal congestion, Nasal drainage, TMs normal , Sinus tenderness, Other - Both ear canals are slightly erythematous and both tragi are tender to palpation. Neck: Positive: Supple Respiratory: Positive: Lungs clear, Normal breath sounds, No respiratory distress Cardiovascular: Positive: RRR Musculoskeletal: Positive: Strength Intact, ROM Intact Neurological: Positive: Alert, Muscle Tone Normal Psychological: Positive: Age Appropriate Behavior Skin Exam: Normal Throat Pain/Nasal Course/Dx - Differential Dx/Diagnosis Provider Diagnosis: Sinusitis, Otitis externa of both ears Discharge ED - Sign-Out/Discharge Documenting (check all that apply): Patient Departure All imaging exams completed and their final reports reviewed: No Studies - Discharge Plan Condition: Stable Disposition: HOME Prescriptions: DOXYcycline CAP(*) [DOXYcycline 100MG CAP(*)] 100 mg PO BID #19 cap Ofloxacin 0.3% (Ear Drop)* [Floxin 0.3% OTIC.ANILA (Ear Drop)] 5 drop BOTH EARS BID #1 btl Patient Education Materials: Sinusitis (ED), Otitis Externa (ED) Referrals: Hector Trevino PA [Primary Care Provider] - Additional Instructions: FOLLOW UP WITH YOUR DOCTOR IF NOT COMPLETELY IMPROVED. GET REEVALUATED SOONER IF NOT IMPROVED OR WORSE OR ANY QUESTIONS OR CONCERNS. - Billing Disposition and Condition Condition: STABLE Disposition: Home
[2019-06-14 20:58] LABS: Influenza A Molecular Negative (Negative); Influenza B Molecular Negative (Negative)
[2019-06-14] MEDS ORDERED: Neomyc/Polym/HC 1% OTIC SUSP* **OTIC BOTH EARS ONE (21:02)
[2019-06-14] MEDS ORDERED: DOXYcycline CAP(*) 100 MG PO ONE (21:03)
== END 2019-06-14 21:26 | disposition home or self-care (01) ==
LOC: UCEAST 20:02
DX: J32.9 Chronic sinusitis, unspecified (principal); H60.93 Unspecified otitis externa, bilateral; E03.9 Hypothyroidism, unspecified; J02.9 Acute pharyngitis, unspecified; Z88.0 Allergy status to penicillin; Z91.09 Other allergy status, other than to drugs and biological substances
CPT/HCPCS: 99212; A9270-GY; G0463

== ENCOUNTER 2019-08-17 10:09 | Emergency (ER) | payer MEDICARE, MEDICAID, OTHER ==
--- OUTSIDE RECORDS SUMMARY | 2019-08-17 10:31 | XMS REPORT ---
:1995 Author Organization [facility] Care Team Providers Name Role Phone ROLAND POLANCO Primary Care Physician Unavailable Allergies, Adverse Reactions, Alerts Allergy Code CodeSystem Reaction Severity Criticality Status Start Substance Date Moderate Medications Medication Medication Medication Start Stop Route Dose Status Fill Code CodeSystem Date Date Instructions sertraline 680027 RxNorm 2019- oral 50 mg completed Take 1/2 7-17 11-14 1/2 tablet by tablet mouth once a once a day for 30 day day(s) sertraline 149827 RxNorm 2019- oral 100 mg 1 completed Take 1 tablet 07-17 tablet once a day once a for 30 day(s) day sertraline 486477 RxNorm 2020- oral 100 mg active for 30 06-02 04-27 tablet day(s) sertraline 597844 RxNorm 0 2019- oral 100 mg 1 completed Take 1 tablet 7-17 11-14 tablet once a day once a for 30 day(s) day risperidone 257055 RxNorm 2019- oral 1 mg 1 completed Take 1 tablet 11-14 tablet at bedtime at for 30 day(s) bedtime risperidone 831228 RxNorm 2018-05 2020- oral 1 mg 1 active Take 1 tablet 2-18 04-16 tablet at bedtime at for 30 day(s) bedtime sertraline 110402 RxNorm 2018-05 2020- oral 50 mg completed Take /2 2-18 -28 1/2 tablet by tablet mouth once a once a day for 30 day day(s) sertraline 507299 RxNorm 2019- oral 50 mg completed Take /06 12-17 1/2 tablet by tablet mouth once a once a day for 30 day day(s) Problems Problem Name Code CodeSystem Alternate Alternate Start End Status Narrative Code CodeSystem Date Date Disturbance 22580239 SNOMED-CT Active of activity 3-22 and attention 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 Relevant diagnostic tests/laboratory data Narrative No Information Procedures Procedure Code CodeSystem Target Date of Status Service Device Device Device Name Site Procedure Delivery Code Name UID Location Psychotherap 416162 SNOMED-CT () 2018-09-01 complete Mental y, 45 04 d Health- minutes with [facility] patient [address], [phone] [phone] Psychotherap [id number] SNOMED-CT () 2018-12-15 complete Mental y, 45 04 d Health- minutes with [facility] patient [address], [id number] [phone] Psychotherap [id number] SNOMED-CT () 2019-03-02 complete Mental y, 45 04 d Health- minutes with [facility] patient [address], [phone] [phone] SNOMED-CT () 2018-10-10 complete Mental d Health- Jennifer[address], [id number] [phone] Office [place] [id number] SNOMED-CT () 2019-04-22 complete Mental other 6 d Health- outpatient Jennifer visit for [address], established [id number] patient, [id number] which requires at least 2 of these 3 [place] components: A problem focused history; A problem focused examination; [place] medical decision making. Counselin Psychotherap [id number] SNOMED-CT () 2018-08-11 complete Mental y, 45 04 d Health- minutes with Jennifer patient [address], [id number] [phone] Office or [id number] SNOMED-CT () 2018-11-19 complete Mental other 6 d Health- outpatient Jennifer visit for [address], established [phone] patient, [id number] which requires at least 2 of these 3 [place] components: A problem focused history; A problem focused examination; [place] medical decision making. Counselin SNOMED-CT () 2019-06-15 complete Mental d Health- Jennifer [address], [id number] [phone] Psychotherap [id number] SNOMED-CT () 2019-05-18 complete Mental y, 45 04 d Health- minutes with [facility] patient [address], [id number] [phone] Psychotherap [id number] SNOMED-CT () 2018-11-17 complete Mental y, 45 04 d Health- minutes with [facility] patient [address], [id number] [phone] Psychotherap [id number] SNOMED-CT () 2019-04-13 complete Mental y, 45 04 d Health- minutes with [facility] patient [address], [phone] [phone] Psychotherap [id number] SNOMED-CT () 2019-01-19 complete Mental y, 45 04 d Health- minutes with [facility] patient [address], [phone] Office or [id number] SNOMED-CT () 2018-09-24 complete Mental other 6 d Health- outpatient [facility] visit for [address], [facility], of an [facility] [phone] patient, [phone] which requires at least 2 of these 3 [place] components: A problem focused history; A problem focused examination; [place] medical decision making. Counselin SNOMED-CT () 2018-10-17 complete Mental d Health- Jennifer[address], [phone] Encounters/Encounter Diagnoses Encounter Name Encounter Diagnosis Diagnosis Diagnosis Date of Service Code Code Name CodeSystem Diagnosis Delivery Location - [id number] Disturbance SNOMED-CT 2019-06-24 Behavioral Established of activity Health patient 10 and attention Clinic , , Minutes , Vital Signs No Information Social History Element Description Description Start End Code CodeSystem AdditionalInfo Date Date SexAssignedAtBirth Male 1994- M AdministrativeGender 2-11 Hospital Discharge Instructions Reason For Referral Medical Equipment FDA Assessments
[2019-08-17 11:21] VITALS: BP 136/94
--- NOTE | 2019-08-17 11:45 | UC ---
Ear Complaint HPI - HPI Summary HPI Summary: Patient's a 24-year-old male presents to urgent care reporting right ear pain for approximately 8 days as well as some sinus congestion with pressure over the last 4. Patient without any fevers or chills. Patient without a cough. No sore throat. No nausea or vomiting. No rash. Patient states she's had ear infections in the past and this feels similar. Patient is on allergy medicine. Patient currently does not have any Flonase but has used in the past. 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 Patient is requesting testing for COVID although he's had no known positive contacts. Patient does not smoke. Patient does not have any lung disease history. Patient's father is also being evaluated requesting testing for Covid. Patient's medications as entered in the EMR by sr. strategic sourcing manager reviewed this visit. - History of Current Complaint Chief Complaint: UCGeneralIllness Stated Complaint: BI LAT EAR PAIN/UPPER RESP Time Seen by Provider: 08/17/19 10:59 Hx Obtained From: Patient Pain Intensity: 5 Pain Scale Used: 0-10 Numeric - Allergies/Home Medications Allergies/Adverse Reactions: Allergies Allergy/AdvReac Type Severity Reaction Status Date / Time Penicillins AdvReac Intermediate Rash Verified 08/17/19 10:23 cats, dogs, horse, hayfever Allergy Unknown Uncoded 08/17/19 10:23 Reaction Details Home Medications: Home Medications Melatonin (NF) 12 mg PO BEDTIME 06/28/13 [History Confirmed 08/17/19] Sertraline* [Zoloft*] 125 mg PO BEDTIME 06/28/13 [History Confirmed 08/17/19] risperiDONE TAB* [Risperdal*] 1 mg PO BEDTIME 06/28/13 [History Confirmed ] Levothyroxine TAB* [Synthroid TAB*] 112 mcg PO DAILY 06/02/18 [History Confirmed 08/17/19] Ibuprofen TAB* [Advil TAB*] 200 mg PO Q6H PRN 06/14/19 [History Confirmed ] Azithromycin TAB* [Zithromax TAB (Z-ANNE) 250 mg #6 tabs] 2 tab PO .TODAY, THEN 1 DAILY #1 anne 08/17/19 [Rx] Fluticasone NASAL SPRAY 50MCG* [Flonase NASAL SPRAY 50MCG*] 2 spray BOTH NARES DAILY #1 btl 08/17/19 [Rx] PMH/Surg Hx/FS Hx/Imm Hx Previously Healthy: Yes Other History Of: Negative For: HIV, Hepatitis B, Hepatitis C, Anticoagulant Therapy - Surgical History Surgical History: Yes Surgery Procedure, Year, and Place: Sinus surgery 2013, polyps removed, Septum straightened; [facility]. right elbow bone graft 02/03/18; [facility] [place] - Family History Known Family History: Positive: Cardiac Disease, Hypertension - mom/dad, Diabetes - dad, Non-Contributory - Social History Occupation: Employed Part-time Lives: With Family Alcohol Use: Occasionally Alcohol Amount: socially Substance Use Type: None Smoking Status (MU): Never Smoked Tobacco Have You Smoked in the Last Year: No - Immunization History Most Recent Influenza Vaccination: no Most Recent Tetanus Shot: PT DOES NOT KNOW Hx Tetanus, Diphtheria Vaccination: Yes Vaccination Up to Date: Yes Review of Systems All Other Systems Reviewed And Are Negative: Yes Constitutional: Positive: Negative Skin: Positive: Negative Eyes: Positive: Negative ENT: Positive: Ear Ache - right >>left, Nasal Discharge, Sinus Congestion, Sinus Pain/Tenderness. Negative: Sore Throat Respiratory: Negative: Shortness Of Breath, Cough Cardiovascular: Positive: Negative Gastrointestinal: Positive: Negative Neurological/Mental Status: Positive: Negative Psychological: Positive: Negative Physical Exam - Summary Physical Exam Summary: Pt evalauted by me while I was wearing full PPE Vital Signs Reviewed: Yes A+Ox3, no distress, speaking full easy sentences, mild nasal congestion Eyes: Conjunctiva Clear, ESME. EOM intact and full ENT: Hearing grossly normal Right TM ++ fluid, erythema left TM wnl, turbinate inflammed and boggy, mild + PND, + TTP max sinuses R>L, mmoist, uvula midline, no exudate, no erythema Neck: Positive: Supple Respiratory: Positive: No respiratory distress, No accessory muscle use + CTA throughout no w/r speaking full easy sentences Cardiovascular: RRR nl s1, s2 no m/r CBT <2 sec abd soft + BS nt/nd no guarding, no distension Musculoskeletal Exam: REED x 4 without difficulty Strength Intact, ROM Intact Neurological: Positive: Alert, + sensation throughout Psychological: Positive: Normal Response To logistics service representative Skin: Positive: no rash, no ecchymosis Triage Information Reviewed: Yes Vital Signs: Initial Vital Signs Temp 98.3 F 08/17/19 10:18 Pulse 87 08/17/19 10:18 Resp 16 08/17/19 10:18 BP 136/94 08/17/19 10:18 Pulse Ox 99 08/17/19 10:18 Ear Complaint Course/Dx - Course Course Of Treatment: Patient presents to urgent care reporting right ear pain and sinus congestion progressive the last week. No cough no fever no chest pain or shortness of breath. Patient does not smoke. Patient is requesting COVID testing. Pt evaluated by me in full PPE Patient exam consistent with right otitis media and some sinus congestion. We' ll start antibiotics and Flonase. We'll test for COVID this patient requested. discussed with pt isolation precautions. Patient's states understanding of the plan. Patient aware was he is aware he will receive a call with results. Work note given. - Differential Dx/Diagnosis Provider Diagnosis: Otitis media, COVID-19 Discharge ED - Sign-Out/Discharge Documenting (check all that apply): Patient Departure All imaging exams completed and their final reports reviewed: No Studies - Discharge Plan Condition: Stable Disposition: HOME Prescriptions: Azithromycin TAB* [Zithromax TAB (Z-ANNE) 250 mg #6 tabs] 2 tab PO .TODAY, THEN 1 DAILY #1 anne Fluticasone NASAL SPRAY 50MCG* [Flonase NASAL SPRAY 50MCG*] 2 spray BOTH NARES DAILY #1 btl Patient Education Materials: Ear Infection (ED) Forms: COVID-19 Tested & Isolation Referrals: Hector Trevino PA [Primary Care Provider] - Additional Instructions: - Stay well hydrated. Drink plenty of non-alcoholic, non-caffinated beverages. - Alternate ibuprofen (Advil, Motrin) 600mg and Tylenol every 3 hours for pain or fever. Take with food. Do NOT take for more than 4-5 days. - These infections are spread by secretions - do NOT share eating or drinking utensils - clean items you share with other people such as cell phones, computer mouse, TV remote, computer tablets,etc. Once you have been antibiotics for 2 days, change your toothbrush and your pillowcase. - get plenty of restful sleep - use nasal spray as prescribed - humidify the air in the room where you sleep - boil water, run a hot steam shower, vaporizer, cups of water by heat register - okay to take over the counter decongestant and cough medication - contact your doctor or return with questions or concerns As discussed, you have been tested for COVID-19. Please follow the strict isolation guidelines as included in your paperwork. You should remain on isolation until you received a phone call with your test results from the [facility]. This may take 2-3 days. If you have any questions, please contact the Health Department. It is recommended you follow-up with your primary care provider. If there is uncontrolled fevers, uncontrolled vomiting, or you have any other concerns, return to emergency for further evaluation. - Billing Disposition and Condition Condition: STABLE Disposition: Home
== END 2019-08-17 11:42 | disposition home or self-care (01) ==
LOC: UCCORT 10:09
DX: H66.91 Otitis media, unspecified, right ear (principal); R09.81 Nasal congestion; Z20.828 Contact with and (suspected) exposure to other viral communicable diseases; Z88.0 Allergy status to penicillin; Z91.09 Other allergy status, other than to drugs and biological substances
CPT/HCPCS: 87635; 99212; G0463; G2023